=== PATIENT | male | born 1960 | race Caucasian/White ===

== ENCOUNTER → 2018-03-02 00:05 | Outpatient (CLI) | payer BC, SELFPAY ==
--- NOTE | 2018-03-02 08:45 | MERGEMPI_ITS ---
*[facility]* *[facility]* [address] [place] [address] Myocardial Perfusion Imaging - SPECT Abhinav protocol Date of study: 03/02/2018 *PATIENT PRESENTATION* Height: 177.8cm (70in) Blood Pressure: Weight: 113.6kg (250lb) BSA: 2.41m^2 Ordering physician: Rosalba Ferguson Impressions: - Normal perfusion by Tc99m Sestamibi Imaging. - Abnormal contraction consistent with cardiomyopathy. Summary: 1. Myocardial perfusion imaging: No myocardial perfusion defects noted. 2. The left ventricular end-systolic volume is 75ml. The calculated left ventricular ejection fraction after stress: 47%. LV global systolic function is mildly reduced. Diffuse left ventricular regional motion abnormalities. 3. Stress ECG conclusions: The stress ECG is negative. Zarate treadmill score: 10. This score predicts a low risk of cardiac events. 4. Stress: The target heart rate was achieved. The heart rate response to stress is normal. There is resting hypertension with an appropriate response to stress. The patient experienced no chest pain during stress. Exercise capacity is good (11 METS). Recommendations: Transthoracic echocardiography should be performed in order to evaluate LV function. Indication: R07.9. History: Patient's presenting symptoms: asymptomatic. REASON FOR VISIT: PATIENT PRESENTED TO EMERGENCY ROOM 02/20/18 WITH COMPLAINTS OF FEELING LIGHTHEADED FOR GREATER THAN ONE DAY, SHORTNESS OF BREATH AND 3/10 NONRADIATING CHEST ACHING (FEELS LIKE THERE IS A WEIGHT ON MY CHEST) THAT HAD BEEN EXPERIENCED FOR THE PAST HOUR. ON PRESENTATION TO EMERGENCY ROOM CHEST ACHING HAD RESOLVED. IN EMERGENCY ROOM, EKG DISPLAYED SINUS RHYTHM AND UNCHANGED, TROPONINS NEGATIVE X 2, AND NEGATIVE FOR PULMONARY EMBOLISM ON CTA. HOLTER MONITOR INFORMATION FROM 01/05/18 PROVIDED. BASELINE RHYTHM WAS SINUS RHYTHM, RATES RANGING FROM 53-125 BEATS PER MINUTE, RARE ECTOPY, AND NO PAUSES GREATER THAN 3 SECONDS. PAST MEDICAL HISTORY: ANXIETY, HYPERTENSION. FAMILY HISTORY: FATHER, MOTHER (VENTRICULAR TACHYCARDIA). SMOKING STATUS: NEVER SMOKER. EXERCISE ROUTINE: 2X/WEEK OF RESISTANCE AND AEROBIC WORKOUT. Risk factors: Family history of coronary artery disease. Hypertension. Obesity. Dyslipidemia. Cholesterol: 137mg/dl. HDL: 41mg/dl. LDL: 68mg/dl. Triglycerides: 137mg/dl. ALLERGIES: NO KNOWN ALLERGIES. MEDICATIONS: DEXTROAMPHETAMINE/AMPHETAMINE 10MG, DAILY. HYDROCHLOROTHIAZIDE 25MG, DAILY. PROPRANOLOL HCL 60MG, DAILY. VENLAFAXINE 75MG, DAILY. Imaging Technique: Protocol: Abhinav protocol. Acquisition: Gated SPECT; 1 day - rest/stress. The patient was imaged in the supine position. Attenuation correction used. Isotope administration: - Rest. Tc[99m]-sestamibi. Dose: 12.6mCi. Injection time: 09:15 AM. Injection to stress time: 00:45. - Stress. Tc[99m]-sestamibi. Dose: 38mCi. Injection time: 10:35 AM. 1-2 min before end of exercise Baseline ECG: SINUS BRADYCARDIA. HEART RATE 56 BPM. Sinus bradycardia. Stress protocol: + +---+ + !Stage !HR !BP (mmHg) ! + +---+ + !Baseline supine !56 !146/88 (107)! + +---+ + !Baseline standing !66 !148/90 (109)! + +---+ + !Stage I; 1.7mph, 10degrees; 3 min !96 !158/86 (110)! + +---+ + !Stage II; 2.5mph, 12degrees; 3 min !111!170/82 (111)! + +---+ + !Stage III; 3.4mph, 14degrees; 3 min!146!178/80 (113)! + +---+ + !Recovery; 1 min !138!190/78 (115)! + +---+ + !Recovery; 3 min !82 !182/84 (117)! + +---+ + !Recovery; 6 min !82 !158/84 (109)! + +---+ + * Stress results: Maximal heart rate during stress was 160bpm (98% of maximal predicted heart rate). The maximal predicted heart rate was 163bpm. The target heart rate was achieved. The heart rate response to stress is normal. There is resting hypertension with an appropriate response to stress. The rate-pressure product for the peak heart rate and blood pressure was 73630fg Hg/min. The patient experienced no chest pain during stress. Exercise capacity is good (11 METS). Stress ECG: TREADMILL PORTION OF EXERCISE STRESS TEST ENDED IN 10MIN 0SEC DUE TO PATIENT FATIGUE. APPROPRIATE HEART RATE AND BLOOD PRESSURE RESPONSE TO EXERCISE. MAX HEART RATE ACHIEVED 160 BPM, 98% OF TARGET. NO ANGINA REPORTED. RARE PAC OBSERVED. UPWARD SLOPING ST DEPRESSION NOTED IN LEADS V3, V4, V5, AND V6. AVERAGE FUNCTIONAL CAPCITY FOR EXERCISE. The stress ECG is negative. Zarate treadmill score: 10. This score predicts a low risk of cardiac events. Myocardial perfusion: Imaging information: gated. The image quality was good. The left ventricle is mildly dilated. No myocardial perfusion defects noted. Ventricular Function (Wall Motion): The left ventricular end-systolic volume is 75ml. The calculated left ventricular ejection fraction after stress: 47%. LV global systolic function is mildly reduced. Diffuse left ventricular regional motion abnormalities. Right ventricular function is normal. Study data: Almas Rizzo MD supervised and was readily available during the procedure. This study was interpreted by [facility]. Study status: Routine. Consent: The risks, benefits, and alternatives to the procedure were explained to the patient and informed consent was obtained. Procedure: Initial setup. A baseline ECG was recorded. Surface ECG leads and manual cuff blood pressure measurements were monitored. Heart sounds: Normal. Lung sounds: Normal. Treadmill exercise testing was performed using the Abhinav protocol. Study completion: All catheters inserted during the procedure were removed. The patient tolerated the procedure well and was discharged from the lab. Discharge: The patient left the laboratory in stable condition. Birthdate: Patient birthdate: 1960. Sex: Gender: male. Study date: Study date: 03/02/2018. Study time: 12:30 PM. Signature Documentation: - The imaging portion of this study was interpreted by Nuclear Senior Merchandiser Almas Rizzo MD. - The imaging portion of this study was interpreted by Nuclear Radiologist Josh Slade MD. - The Stress ECG portion of this study was interpreted by Almas Rizzo MD. Electronically signed by Almas Rizzo 03/02/2018 12:51
== END ==
PROVIDERS: PCP Family Medicine; Visit Provider Family Medicine
DX: R07.9 Chest pain, unspecified (principal); R06.02 Shortness of breath; I42.9 Cardiomyopathy, unspecified; I10 Essential (primary) hypertension; F41.9 Anxiety disorder, unspecified; Z82.49 Family history of ischemic heart disease and other diseases of the circulatory system
CPT/HCPCS: 78452; 93017

== ENCOUNTER → 2018-03-09 13:51 | Outpatient (CLI) | payer BC, SELFPAY ==
--- NOTE | 2018-03-09 14:05 | MERGE_ITS ---
*[facility]* *[facility]* [address] [place] [address] Date of study: 03/09/2018 Transthoracic Echocardiography M-mode, complete 2D, complete spectral Doppler, and color Doppler *STUDY CONCLUSIONS* Summary: 1. Left ventricle: The cavity size was mildly dilated. Wall thickness was increased in a pattern of mild LVH. Systolic function was normal. The estimated ejection fraction was 55-60%. Wall motion was normal; there were no regional wall motion abnormalities. 2. Aortic valve: Trileaflet; normal thickness leaflets. There was mild regurgitation. 3. Aortic root: The aortic root was mildly dilated. 4.0 cm. 4. Mitral valve: There was mild regurgitation. 5. Left atrium: The atrium was mildly dilated. 6. Right ventricle: The cavity size was mildly dilated. Wall thickness was normal. Systolic function was normal. 7. Right atrium: The atrium was moderately dilated. 8. Pulmonary arteries: Pulmonary systolic pressure was within the normal range, in the range of 30mm Hg to 35mm Hg. *PATIENT PRESENTATION* Height: 177.8cm ((70in) ) S/D Pressure: 138 / 77 Weight: 113.4kg ((249.5lb) ) BSA: 2.41m^2 Test start time: 02:15 PM. Test stop time: 03:00 PM. ORDERING Rosalba Ferguson REFERRING Rosalba Ferguson PERFORMING Unknown PERFORMING [facility] SENIOR COMMISSIONS ANALYST RT Art Winston)(ALONZO)MINDA *PROCEDURE DATA* Procedure information: The patient was identified by two identifiers. This study was interpreted by [facility]. Pertinent images and digital data are archived for permanent storage and are available for subsequent review. Comparison was made to the study of 11/16/2013. Study status: Routine. Transthoracic echocardiography. M-mode, complete 2D, complete spectral Doppler, and color Doppler. A Transthoracic Echocardiogram was performed. Scanning was performed from the parasternal, apical, subcostal, and suprasternal notch acoustic windows. Images were obtained using an [id number] cardiac ultrasound machine. Image quality was adequate. Study completion: The patient tolerated the procedure well. There were no complications. History: PMH: Low Ejection fraction. Recent ER visit for chest pain, dizziness, increased HE, MPI negative for ischemia, echo reccomended. *CARDIAC ANATOMY* Left ventricle: The cavity size was mildly dilated. Wall thickness was increased in a pattern of mild LVH. Systolic function was normal. The estimated ejection fraction was 55-60%. Wall motion was normal; there were no regional wall motion abnormalities. Findings consistent with diastolic dysfunction. Aortic valve: Trileaflet; normal thickness leaflets. Mobility was not restricted. Doppler: Transvalvular velocity was within the normal range. There was no stenosis. There was mild regurgitation. VTI ratio of LVOT to aortic valve: 0.62. Valve area (VTI): 2.4cm^2. Indexed valve area (VTI): 1cm^2/m^2. Peak velocity ratio of LVOT to aortic valve: 0.67. Valve area (Vmax): 2.6cm^2. Indexed valve area (Vmax): 1.1cm^2/m^2. Mean velocity ratio of LVOT to aortic valve: 0.54. Valve area (Vmean): 2.1cm^2. Indexed valve area (Vmean): 0.9cm^2/m^2. Mean gradient (S): 6.6mm Hg. Peak gradient (S): 11.7mm Hg. Aorta: Aortic root: The aortic root was mildly dilated. 4.0 cm. Ascending aorta: The ascending aorta was normal in size. Mitral valve: Structurally normal valve. Mobility was not restricted. Doppler: Transvalvular velocity was within the normal range. There was no evidence for stenosis. There was mild regurgitation. Valve area by pressure half-time: 3.7cm^2. Indexed valve area by pressure half-time: 1.5cm^2/m^2. Left atrium: The atrium was mildly dilated. Right ventricle: The cavity size was mildly dilated. Wall thickness was normal. Systolic function was normal. Pulmonic valve: Structurally normal valve. Doppler: Transvalvular velocity was within the normal range. There was no evidence for stenosis. There was trivial regurgitation. Tricuspid valve: Structurally normal valve. Doppler: Transvalvular velocity was within the normal range. There was no evidence for stenosis. There was mild regurgitation. Pulmonary artery: Pulmonary systolic pressure was within the normal range, in the range of 30mm Hg to 35mm Hg. Right atrium: The atrium was moderately dilated. Pericardium: There was no pericardial effusion. Systemic veins: Inferior vena cava: Not well visualized. The vessel was patent and normal in size. The respirophasic diameter changes were in the normal range (greater than or equal to 50%). Baseline ECG: Normal sinus rhythm. Measurements Left ventricle Value Reference LV ID, ED, PLAX 6.0 cm 3.5 - 6.0 LV ID, ES, PLAX (H) 4.4 cm 2.1 - 4.0 LV PW thickness, ED, PLAX 1.1 cm LV end-diastolic volume, 1-p A2C 117 ml LV ejection fraction, 1-p A2C 50 % LV end-diastolic volume, 1-p A4C 147 ml LV ejection fraction, 1-p A4C 55 % LV e', lateral 0.066 m/sec LV E/e', lateral 8 LV e', medial 0.06 m/sec LV E/e', medial 9 LV e', average 0.063 m/sec LV E/e', average 9 Ventricular septum Value Reference IVS thickness, ED, PLAX 1.2 cm LVOT Value Reference LVOT ID, A-P 2.2 cm LVOT area 3.9 cm^2 LVOT peak velocity, S 1.14 m/sec LVOT mean velocity, S 0.67 m/sec LVOT VTI, S 24.6 cm LVOT peak gradient, S 5.2 mm Hg LVOT mean gradient, S 2.3 mm Hg Stroke volume (SV), LVOT DP 97 ml Stroke index (SV/bsa), LVOT DP 40 ml/m^2 Aortic valve Value Reference Aortic valve peak velocity, S 1.7 m/sec Aortic valve mean velocity, S 1.24 m/sec Aortic valve VTI, S 40.0 cm Aortic mean gradient, S 6.6 mm Hg Aortic peak gradient, S 11.7 mm Hg VTI ratio, LVOT/AV 0.62 Aortic valve area, VTI 2.4 cm^2 Velocity ratio, peak, LVOT/AV 0.67 Aortic valve area, peak velocity 2.6 cm^2 Velocity ratio, mean, LVOT/AV 0.54 Aortic valve area, mean velocity 2.1 cm^2 Aortic valve area/bsa, mean velocity 0.9 cm^2/m^2 Aortic regurg deceleration 260 cm/s^2 Aortic regurg pressure half-time 445 ms Aorta Value Reference Aortic root ID, ED 4.0 cm Ascending aorta ID, A-P, S 3.3 cm RVOT Value Reference RVOT VTI, S 16.9 cm Left atrium Value Reference LA ID, A-P, ES 4.6 cm LA ID/bsa, A-P 1.9 cm/m^2 <=2.2 LA area, ES, A4C (H) 28.5 cm^2 8.8 - 23.4 LA area, ES, A2C 23 cm^2 LA volume/bsa, ES, 1-p A4C 48 ml/m^2 LA volume, ES, 2-p 87 ml LA volume/bsa, ES, 2-p 36 ml/m^2 LA/aortic root ratio 1.16 Mitral valve Value Reference Mitral E-wave peak velocity 0.54 m/sec Mitral A-wave peak velocity 0.8 m/sec Mitral deceleration time 208 ms 150 - 230 Mitral pressure half-time 60 ms Mitral E/A ratio, peak 0.68 Mitral valve area, PHT, DP 3.7 cm^2 Pulmonary veins Value Reference Pulmonary vein peak velocity, S 0.66 m/sec Pulmonary vein peak velocity, D 0.39 m/sec Pulmonary vein velocity ratio, peak, 1.71 S/D Pulmonary vein A-wave reversal peak 0.34 m/sec velocity Pulmonary vein A-wave reversal 133 ms duration Tricuspid valve Value Reference Tricuspid regurg peak velocity 2.6 m/sec Tricuspid peak RV-RA gradient 26.9 mm Hg Right atrium Value Reference RA area, ES, A4C (H) 22.5 cm^2 8.3 - 19.5 Legend: (L) and (H) braeden values outside specified reference range. I have personally reviewed the images and have reviewed and edited the reported findings. Electronically signed by Almas Rizzo 03/09/2018 15:48
== END ==
PROVIDERS: PCP Family Medicine; Visit Provider Family Medicine
DX: R07.9 Chest pain, unspecified (principal); R06.09 Other forms of dyspnea; R42 Dizziness and giddiness; I08.0 Rheumatic disorders of both mitral and aortic valves
CPT/HCPCS: 93306

== ENCOUNTER → 2018-03-29 08:44 | Outpatient (CLI) | payer BC, SELFPAY ==
[2018-03-29 10:22] LABS: Ferritin 128 ng/mL (8-388); TSH 1.07 uIU/mL (0.358-3.74)
== END ==
PROVIDERS: PCP Family Medicine; Visit Provider Nurse Practitioner
DX: G47.61 Periodic limb movement disorder (principal); R53.83 Other fatigue
CPT/HCPCS: 36415; 82728; 84443

== ENCOUNTER 2018-07-29 14:13 | Outpatient (REF) | payer BC, SELFPAY ==
[2018-07-29 15:03] LABS: Anion Gap 12.5 mmol/L (3-11); BUN 22 mg/dL (7-18); CO2 24.5 mmol/L (21.0-32.0); CREATININE 1.22 mg/dL (0.70-1.30); Calcium 9.6 mg/dL (8.5-10.1); Chloride 105 mmol/L (98-107); Glucose 124 mg/dL (70-100); Potassium 3.8 mmol/L (3.5-5.1); Sodium 142 mmol/L (136-145)
== END 2018-07-29 14:33 ==
LOC: NCHCN 14:13
PROVIDERS: PCP Family Medicine; Visit Provider Family Medicine
DX: E87.6 Hypokalemia (principal); Z51.81 Encounter for therapeutic drug level monitoring
CPT/HCPCS: 80048

== ENCOUNTER 2018-08-05 08:33 | Day surgery (SDC) | payer BC, SELFPAY ==
[2018-08-05 08:57] VITALS: BP 124/78; PULSE 62; RESP 16; TEMP 35.8; O2SAT 98
[2018-08-05] MEDS: Lidocaine 2% Multi-Dose 50 ML VIAL (10:29)
--- NOTE | 2018-08-05 10:44 | W.PM.DSUDISC ---
Discharge Plan Disposition Patient Disposition: HOME Condition: Improving Discharge Details Reason For Visit: (R) CARPAL TUNNEL Attending Provider: Mando Ayers Primary Care Provider: Rosalba Ferguson Home Meds and New Rx's Prescriptions: No Action lisinopril 10 mg tablet 10 mg PO DAILY RF: 0 prochlorperazine maleate 5 mg tablet 5 mg PO Q8H PRN PRN (Reason: nausea or headache) Qty: 60 RF: 3 ropinirole 1 mg tablet 1 mg PO HS Qty: 30 RF: 0 topiramate 25 mg tablet 25 mg PO HS Qty: 60 RF: 5 propranolol 20 MG/5 ML solution 60 mg PO BID RF: 0 sertraline 50 MG tablet 150 mg PO DAILY RF: 0 Aspirin/Acetaminophen/Caffeine [Excedrin Migraine Caplet] 1 EACH tablet 1 ea PO DAILY RF: 0 multivitamin [Daily Multiple] 1 EACH tablet 1 ea PO DAILY RF: 0 dextroamphetamine-amphetamine [Adderall XR] 20 MG capsule,extended release 24hr 20 mg PO DAILY RF: 0 vitamin B complex [B Complex-Vitamin B12] 1 EACH tablet 1 ea PO DAILY RF: 0 vitamin E 400 UNIT capsule 400 unit PO DAILY RF: 0 cholestyramine (with sugar) 4 GM packet 4 g PO BID RF: 0 cholecalciferol (vitamin D3) 1,000 UNIT tablet 1,000 unit PO DAILY RF: 0 omega 7-csr-crr-fish oil [Fish Oil] 1,000 MG capsule 2,000 mg PO BID RF: 0 Probiotic 1 EACH capsule 1 ea PO DAILY RF: 0 venlafaxine 75 MG tablet 75 mg PO DAILY RF: 0 ibuprofen 200 mg Capsule 200 mg PO QID PRNRF: 0 pseudoephedrine HCl [Sudafed] 30 mg Tablet RF: 0 Discharge Instructions Additional Instructions: Keep your right hand elevated above your heart level as much as possible for the next 48-72 hours. Exercise your fingers and thumb as comfort allows. You may loosen your wrist splint and/or the underlying lopez bandage if they feel too tight. Expect some bloody drainage on the underlying gauze bandages. You may shower tomorrow, by covering your brace with a plastic bag and a rubber band about the upper forearm to keep the bandages dry. On 08/07/18, you may remove all of your bandages and get your wound wet in the shower with soap and water. Gently pat the stitches dry and cover them with gauze, or extra-large bandaids or a clean fingerless cotton glove to prevent the stitches from catching on your clothing or other objects. After wednesday, use of the brace is optional. You may go without it as comfort allows. Make sure you continue to flex and extend your fingers and thumb to prevent stiffness. Take your regular medications as before. Take tylenol, advil or aleve for milder pain. Tylenol may be taken at the same time as advil or at the same time as aleve as they are metabolized differently and are not cross toxic. Follow-up with in 1 week for stitch removal. Stand Alone Forms: Natasha Amado (DSU) Equipment/Supplies: Brace Activity:: Elevate Remove Dressings/Wound Care:: 48 hours Shower/Bathe:: 48 hours Diet:: As Tolerated Discharge Orders Discharge Orders: Discharge Order (Routine); Ordered 08/05/18 Ordered By: Mando Aeyrs
--- NOTE | 2018-08-05 11:23 | ROE_ITS ---
DATE OF PROCEDURE: August 05, 2018 PREOPERATIVE DIAGNOSIS: Chronic bilateral carpal tunnel syndrome, right worse than left. POSTOPERATIVE DIAGNOSIS: Same. PROCEDURE: Right open carpal tunnel release. SURGEON: Mando Ayers M.D. BRUSHER TENDER: Nurse. ANESTHETIC: 2% lidocaine plain without epinephrine. PREP: ChloraPrep. INDICATIONS: This patient has had chronic symptoms of bilateral carpal tunnel syndrome, right worse than left. He had EMG and nerve conduction studies which showed the above-named diagnosis. He also had numbness involving the little finger, but no evidence of cubital tunnel syndrome or ulnar neuropa thy elsewhere. I recommended open carpal tunnel release, explaining to the patient that this often w ould create more space for the ulnar nerve at Guyon's canal and also that about 15% of patients with chronic carpal tunnel syndrome have involvement of the little finger. He had no thenar atrophy. His left hand was less involved. I explained to the patient the difference between endoscopic carpal tu nnel release and open carpal tunnel release. I also explained my preference for an open release, as I felt it was more complete and also had a lower complication rate. He understood and wished to proc eed. I saw the patient and his in the Day Surgery holding area. I marked his right hand. I reviewed the planned procedure. He consented to proceed. PROCEDURE: The patient was brought to the operating suite where his right upper extremity was preppe d with ChloraPrep. A time-out was instituted, verifying his allergy status and his planned operative procedure. Sterile drapes were applied and the right hand was marked with a sterile surgical marker for the universal carpal tunnel incision based over the ring finger. Care was taken to deviate the incision over the distal flexion crease of the wrist so as to prevent injury to the palmar cutaneous branch of the median nerve. 2% lidocaine was then used to create an anesthetic wheal over the propos ed incision site. After waiting several minutes and verifying complete anesthesia over the incision site, the incision was made with a #15 scalpel blade. Loupe magnification was used throughout the pr ocedure. The incision was carried down through the superficial palmar fat to the palmar fascia. Thi s was incised with a combination of sharp and blunt dissection. Heiss retractors were inserted. The transverse carpal ligament was easily identified. Under direct vision it was released with a #15 sc alpel blade. The release was complete, extending to just proximal to the distal arterial arcade and through the antebrachial fascia. This was done proximally using Littler scissors. I then had the pa tient flex and extend his fingers. He had moderate tenosynovitis. He had the characteristic flatten ing of the median nerve in the mid portion of the carpal tunnel. I found no evidence of any loose kathleen dies, foreign bodies or ganglion cyst. The wound was then irrigated and the skin was closed with sut ures alternating between [id number] retention sutures and simple sutures of #4-0 Ethilon. Celestino rile bandages were applied. The patient was allowed to visualize his hand and could make a completel y tightly-clenched fist and had full extension. The wound was dressed with 4x4's and 3-inch conformi ng gauze bandage, followed by a 3-inch Joey wrap and a commercial wrist immobilizer. He was taken to the outpatient recovery room in satisfactory condition, tolerating the procedure well.
--- NOTE | 2018-08-10 09:16 | PDOC.DSDIS_ITS ---
Discharge Plan Disposition Patient Disposition: HOME Condition: Improving Discharge Details Reason For Visit: (R) CARPAL TUNNEL Attending Provider: Mando Ayers Primary Care Provider: Rosalba Ferguson Home Meds and New Rx's Prescriptions: No Action lisinopril 10 mg tablet 10 mg PO DAILY RF: 0 prochlorperazine maleate 5 mg tablet 5 mg PO Q8H PRN PRN (Reason: nausea or headache) Qty: 60 RF: 3 ropinirole 1 mg tablet 1 mg PO HS Qty: 30 RF: 0 topiramate 25 mg tablet 25 mg PO HS Qty: 60 RF: 5 propranolol 20 MG/5 ML solution 60 mg PO BID RF: 0 sertraline 50 MG tablet 150 mg PO DAILY RF: 0 Aspirin/Acetaminophen/Caffeine [Excedrin Migraine Caplet] 1 EACH tablet 1 ea PO DAILY RF: 0 multivitamin [Daily Multiple] 1 EACH tablet 1 ea PO DAILY RF: 0 dextroamphetamine-amphetamine [Adderall XR] 20 MG capsule,extended release 24hr 20 mg PO DAILY RF: 0 vitamin B complex [B Complex-Vitamin B12] 1 EACH tablet 1 ea PO DAILY RF: 0 vitamin E 400 UNIT capsule 400 unit PO DAILY RF: 0 cholestyramine (with sugar) 4 GM packet 4 g PO BID RF: 0 cholecalciferol (vitamin D3) 1,000 UNIT tablet 1,000 unit PO DAILY RF: 0 omega 9-vzx-cja-fish oil [Fish Oil] 1,000 MG capsule 2,000 mg PO BID RF: 0 Probiotic 1 EACH capsule 1 ea PO DAILY RF: 0 venlafaxine 75 MG tablet 75 mg PO DAILY RF: 0 ibuprofen 200 mg Capsule 200 mg PO QID PRNRF: 0 pseudoephedrine HCl [Sudafed] 30 mg Tablet RF: 0 hydrocodone-acetaminophen [[place]] 5-325 mg Tablet 1 - 2 tab PO Q4H PRNRF: 0 Discharge Instructions Additional Instructions: Keep your right hand elevated above your heart level as much as possible for the next 48-72 hours. Exercise your fingers and thumb as comfort allows. You may loosen your wrist splint and/or the underlying lopez bandage if they feel too tight. Expect some bloody drainage on the underlying gauze bandages. You may shower tomorrow, by covering your brace with a plastic bag and a rubber band about the upper forearm to keep the bandages dry. On 08/07/18, you may remove all of your bandages and get your wound wet in the shower with soap and water. Gently pat the stitches dry and cover them with gauze, or extra-large bandaids or a clean fingerless cotton glove to prevent the stitches from catching on your clothing or other objects. After wednesday, use of the brace is optional. You may go without it as comfort allows. Make sure you continue to flex and extend your fingers and thumb to prevent stiffness. Take your regular medications as before. Take tylenol, advil or aleve for milder pain. Tylenol may be taken at the same time as advil or at the same time as aleve as they are metabolized differently and are not cross toxic. Follow-up with in 1 week for stitch removal. Stand Alone Forms: Natasha Amado (DSU) Equipment/Supplies: Brace Activity:: Elevate Remove Dressings/Wound Care:: 48 hours Shower/Bathe:: 48 hours Diet:: As Tolerated Discharge Orders Discharge Orders: Discharge Order (Routine); Ordered 08/05/18 Ordered By: Mando Ayers Discharge Data Discharge Date/Time-TO BE ENTERED AT DEPARTURE: 08/05/18 11:06 Discharge Comment: Pt d/c'd with spouse in personal vehicle.
== END 2018-08-05 11:06 | disposition home or self-care (01) ==
PROVIDERS: PCP Family Medicine; Visit Provider Orthopaedic Surgery
PROC: (CPT 64721; principal; 2018-08-05 09:30)
DX: G56.03 Carpal tunnel syndrome, bilateral upper limbs (principal)
CPT/HCPCS: 64721; L3908

== ENCOUNTER 2018-08-13 21:43 | Emergency (ER) | payer BC, SELFPAY ==
[2018-08-13 21:48] VITALS: BP 155/91; PULSE 72; RESP 16; TEMP 36.2; O2SAT 96
--- NOTE | 2018-08-13 21:53 | W.ED.GENAD ---
Discharge Plan Disposition Patient Disposition: HOME Condition: Good Discharge Details Chief Complaint: Orthopedic Clinical Impression: Postoperative wound breakdown Primary Care Provider: Rosalba Ferguson ED Provider: Josh Key Home Meds and New Rx's Prescriptions: Continued lisinopril 10 mg tablet 10 mg PO DAILY RF: 0 prochlorperazine maleate 5 mg tablet 5 mg PO Q8H PRN PRN (Reason: nausea or headache) Qty: 60 RF: 3 ropinirole 1 mg tablet 1 mg PO HS Qty: 30 RF: 0 topiramate 25 mg tablet 25 mg PO HS Qty: 60 RF: 5 propranolol 20 MG/5 ML solution 60 mg PO BID RF: 0 sertraline 50 MG tablet 150 mg PO DAILY RF: 0 Aspirin/Acetaminophen/Caffeine [Excedrin Migraine Caplet] 1 EACH tablet 1 ea PO DAILY RF: 0 multivitamin [Daily Multiple] 1 EACH tablet 1 ea PO DAILY RF: 0 dextroamphetamine-amphetamine [Adderall XR] 20 MG capsule,extended release 24hr 20 mg PO DAILY RF: 0 vitamin B complex [B Complex-Vitamin B12] 1 EACH tablet 1 ea PO DAILY RF: 0 vitamin E 400 UNIT capsule 400 unit PO DAILY RF: 0 cholestyramine (with sugar) 4 GM packet 4 g PO BID RF: 0 cholecalciferol (vitamin D3) 1,000 UNIT tablet 1,000 unit PO DAILY RF: 0 omega 1-coz-jqd-fish oil [Fish Oil] 1,000 MG capsule 2,000 mg PO BID RF: 0 Probiotic 1 EACH capsule 1 ea PO DAILY RF: 0 venlafaxine 75 MG tablet 75 mg PO DAILY RF: 0 ibuprofen 200 mg Capsule 200 mg PO QID PRNRF: 0 pseudoephedrine HCl [Sudafed] 30 mg Tablet RF: 0 hydrocodone-acetaminophen [[place]] 5-325 mg Tablet 1 - 2 tab PO Q4H PRNRF: 0 Discharge Instructions Additional Instructions: Leave the Xeroform dressing in place. May change the gauze dressing as needed. Continue to wear your splint. Contact Dr. Ayers on Wednesday for follow-up. Return to ED for fever, increasing pain, increasing drainage, redness. Referrals: Mando Ayers MD [ [facility] STAFF PHYSICIAN] - Medical Decision Making Patient's incision has opened but does not appear to be infected. The dermis has opened but the tissue beneath is intact. There is no drainage. There is no erythema. I did speak with Dr. Rockwell on-call for orthopedics. Does not appear to be an obvious infection. Would not put on antibiotics prophylactically. Recommend Xeroform dressing and following up with Dr. Ayers. Discussed this with patient and . Discharged home in good condition. HPI General Mode of arrival: ambulatory. Date/Time Provider Initiated Documentation: 08/13/18 21:48. Limitations to Documentation: no limitations. Information obtained by: patient and family. HPI Narrative: Patient presents for evaluation of his wound which opened up. He had a right carpal tunnel surgery done on the fourth. Sutures were removed yesterday. Wound opened a little bit and Steri-Strips were applied. Today wound opened up completely. He had some bleeding. He has had no fever. He has had no redness or drainage since the bleeding. Area is a little more painful than it had been since the sutures were removed yesterday. Related Data Home Medications Medication Instructions Recorded Confirmed propranolol 60 mg PO BID ml 11/18/12 08/13/18 sertraline 150 mg PO DAILY tab-cap 11/18/12 08/13/18 venlafaxine 75 mg PO DAILY 04/25/16 08/13/18 Aspirin/Acetaminophen/Caffeine 1 ea PO DAILY 03/21/18 08/13/18 [Excedrin Migraine Caplet] Probiotic 1 ea PO DAILY 03/21/18 08/13/18 cholecalciferol (vitamin D3) 1,000 unit PO DAILY 03/21/18 08/13/18 cholestyramine (with sugar) 4 g PO BID packet 03/21/18 08/13/18 dextroamphetamine-amphetamine 20 mg PO DAILY tab-cap 03/21/18 08/13/18 [Adderall XR] multivitamin [Daily Multiple] 1 ea PO DAILY 03/21/18 08/13/18 omega 2-nao-doa-fish oil [Fish Oil] 2,000 mg PO BID 03/21/18 08/13/18 vitamin B complex [B 1 ea PO DAILY 03/21/18 08/13/18 Complex-Vitamin B12] vitamin E 400 unit PO DAILY 03/21/18 08/13/18 lisinopril 10 mg tablet 10 mg PO DAILY 10/01/18 01/12/19 prochlorperazine maleate 5 mg 5 mg PO Q8H PRN PRN #60 tab 05/02/18 08/13/18 tablet ropinirole 1 mg tablet 1 mg PO HS #30 tab 05/02/18 08/13/18 topiramate 25 mg tablet 25 mg PO HS #60 tab 07/04/18 08/13/18 hydrocodone-acetaminophen [[place]] 1 - 2 tab PO Q4H PRN 08/05/18 08/13/18 ibuprofen 200 mg PO QID PRN 08/05/18 08/13/18 pseudoephedrine HCl [Sudafed] 08/05/18 08/12/18 Previous Rx's Medication Instructions Recorded prochlorperazine maleate 5 mg 5 mg PO Q8H PRN PRN #60 tab 05/02/18 tablet ropinirole 1 mg tablet 1 mg PO HS #30 tab 05/02/18 topiramate 25 mg tablet 25 mg PO HS #60 tab 07/04/18 Allergies Allergy/AdvReac Type Severity Reaction Status Date / Time No Known Allergies Allergy Unverified 08/13/18 21:56 Review of Systems Constitutional Denies fever(s) and Denies weakness Musculoskeletal Denies numbness and Denies tingling Integumentary/Breasts Denies erythema and Reports wounds Neurologic Denies focal weakness, Denies numbness, Denies sensory deficit, Denies tingling, Denies paresthesias and Denies weakness [facility] Medical History Erectile dysfunction (Chronic) Colon cancer (Resolved) ADHD (Chronic) Depression with anxiety (Chronic) BMI 37.0-37.9, adult (Chronic) Pre-diabetes (Chronic) Gout (Chronic) Obstructive sleep apnea on CPAP (Chronic) Headache, chronic migraine without aura (Chronic) Hyperlipidemia (Chronic) Hypertension (Chronic) Hemorrhoids (Chronic) Dilated cardiomyopathy (Acute) Headache (Resolved) History of hypertension (Resolved) Surgical History H/O umbilical hernia repair (Acute) Leg fracture (Acute) S/P partial colectomy (Acute) Repair of umbilical hernia (Resolved) Social History household members: spouse and children current occupation: [employer], 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 Exam Const General: cooperative, comfortable and no acute distress Orientation: alert and oriented x3 Skin Other: Incision in the right hand/wrist area has opened up along the entire incision. Granulation tissue below the dermis is intact. It looks pink and viable. There is no drainage. There is no foul smell. There is no erythema.
--- NOTE | 2018-08-13 22:13 | ED.GENADUL_ITS ---
Discharge Plan Disposition Patient Disposition: HOME Condition: Good Discharge Details Chief Complaint: Orthopedic Clinical Impression: Postoperative wound breakdown Primary Care Provider: Rosalba Ferguson ED Provider: Josh Key Home Meds and New Rx's Prescriptions: Continued lisinopril 10 mg tablet 10 mg PO DAILY RF: 0 prochlorperazine maleate 5 mg tablet 5 mg PO Q8H PRN PRN (Reason: nausea or headache) Qty: 60 RF: 3 ropinirole 1 mg tablet 1 mg PO HS Qty: 30 RF: 0 topiramate 25 mg tablet 25 mg PO HS Qty: 60 RF: 5 propranolol 20 MG/5 ML solution 60 mg PO BID RF: 0 sertraline 50 MG tablet 150 mg PO DAILY RF: 0 Aspirin/Acetaminophen/Caffeine [Excedrin Migraine Caplet] 1 EACH tablet 1 ea PO DAILY RF: 0 multivitamin [Daily Multiple] 1 EACH tablet 1 ea PO DAILY RF: 0 dextroamphetamine-amphetamine [Adderall XR] 20 MG capsule,extended release 24hr 20 mg PO DAILY RF: 0 vitamin B complex [B Complex-Vitamin B12] 1 EACH tablet 1 ea PO DAILY RF: 0 vitamin E 400 UNIT capsule 400 unit PO DAILY RF: 0 cholestyramine (with sugar) 4 GM packet 4 g PO BID RF: 0 cholecalciferol (vitamin D3) 1,000 UNIT tablet 1,000 unit PO DAILY RF: 0 omega 7-gkd-bnh-fish oil [Fish Oil] 1,000 MG capsule 2,000 mg PO BID RF: 0 Probiotic 1 EACH capsule 1 ea PO DAILY RF: 0 venlafaxine 75 MG tablet 75 mg PO DAILY RF: 0 ibuprofen 200 mg Capsule 200 mg PO QID PRNRF: 0 pseudoephedrine HCl [Sudafed] 30 mg Tablet RF: 0 hydrocodone-acetaminophen [[place]] 5-325 mg Tablet 1 - 2 tab PO Q4H PRNRF: 0 Discharge Instructions Additional Instructions: Leave the Xeroform dressing in place. May change the gauze dressing as needed. Continue to wear your splint. Contact Dr. Ayers on Wednesday for follow-up. Return to ED for fever, increasing pain, increasing drainage, redness. Referrals: Mando Ayers MD [ [facility] STAFF PHYSICIAN] - Medical Decision Making Patient's incision has opened but does not appear to be infected. The dermis has opened but the tissue beneath is intact. There is no drainage. There is no erythema. I did speak with Dr. Rockwell on-call for orthopedics. Does not appear to be an obvious infection. Would not put on antibiotics prophylactically. Recommend Xeroform dressing and following up with Dr. Ayers. Discussed this with patient and . Discharged home in good condition. HPI General Mode of arrival: ambulatory . Date/Time Provider Initiated Documentation: 08/13/18 21:48 . Limitations to Documentation: no limitations . Information obtained by: patient and family . HPI Narrative: Patient presents for evaluation of his wound which opened up. He had a right carpal tunnel surgery done on the fourth. Sutures were removed yesterday. Wound opened a little bit and Steri-Strips were applied. Today wound opened up completely. He had some bleeding. He has had no fever. He has had no redness or drainage since the bleeding. Area is a little more painful than it had been since the sutures were removed yesterday. Related Data Home Medications Medication Instructions Recorded Confirmed propranolol 60 mg PO BID ml 11/18/12 08/13/18 sertraline 150 mg PO DAILY tab-cap 11/18/12 08/13/18 venlafaxine 75 mg PO DAILY 04/25/16 08/13/18 Aspirin/Acetaminophen/Caffeine 1 ea PO DAILY 03/21/18 08/13/18 [Excedrin Migraine Caplet] Probiotic 1 ea PO DAILY 03/21/18 08/13/18 cholecalciferol (vitamin D3) 1,000 unit PO DAILY 03/21/18 08/13/18 cholestyramine (with sugar) 4 g PO BID packet 03/21/18 08/13/18 dextroamphetamine-amphetamine 20 mg PO DAILY tab-cap 03/21/18 08/13/18 [Adderall XR] multivitamin [Daily Multiple] 1 ea PO DAILY 03/21/18 08/13/18 omega 5-nxj-szs-fish oil [Fish Oil] 2,000 mg PO BID 03/21/18 08/13/18 vitamin B complex [B 1 ea PO DAILY 03/21/18 08/13/18 Complex-Vitamin B12] vitamin E 400 unit PO DAILY 03/21/18 08/13/18 lisinopril 10 mg tablet 10 mg PO DAILY 10/01/18 01/12/19 prochlorperazine maleate 5 mg 5 mg PO Q8H PRN PRN #60 tab 05/02/18 08/13/18 tablet ropinirole 1 mg tablet 1 mg PO HS #30 tab 05/02/18 08/13/18 topiramate 25 mg tablet 25 mg PO HS #60 tab 07/04/18 08/13/18 hydrocodone-acetaminophen [[place]] 1 - 2 tab PO Q4H PRN 08/05/18 08/13/18 ibuprofen 200 mg PO QID PRN 08/05/18 08/13/18 pseudoephedrine HCl [Sudafed] 08/05/18 08/12/18 Previous Rx's Medication Instructions Recorded prochlorperazine maleate 5 mg 5 mg PO Q8H PRN PRN #60 tab 05/02/18 tablet ropinirole 1 mg tablet 1 mg PO HS #30 tab 05/02/18 topiramate 25 mg tablet 25 mg PO HS #60 tab 07/04/18 Allergies Allergy/AdvReac Type Severity Reaction Status Date / Time No Known Allergies Allergy Unverified 08/13/18 21:56 Review of Systems Constitutional Denies fever(s) and Denies weakness Musculoskeletal Denies numbness and Denies tingling Integumentary/Breasts Denies erythema and Reports wounds Neurologic Denies focal weakness, Denies numbness, Denies sensory deficit, Denies tingling, Denies paresthesias and Denies weakness [facility] Medical History Erectile dysfunction (Chronic) Colon cancer (Resolved) ADHD (Chronic) Depression with anxiety (Chronic) BMI 37.0-37.9, adult (Chronic) Pre-diabetes (Chronic) Gout (Chronic) Obstructive sleep apnea on CPAP (Chronic) Headache, chronic migraine without aura (Chronic) Hyperlipidemia (Chronic) Hypertension (Chronic) Hemorrhoids (Chronic) Dilated cardiomyopathy (Acute) Headache (Resolved) History of hypertension (Resolved) Surgical History H/O umbilical hernia repair (Acute) Leg fracture (Acute) S/P partial colectomy (Acute) Repair of umbilical hernia (Resolved) Social History household members: spouse and children current occupation: [employer], [employer]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 Exam Const General: cooperative, comfortable and no acute distress Orientation: alert and oriented x3 Skin Other: Incision in the right hand/wrist area has opened up along the entire incision. Granulation tissue below the dermis is intact. It looks pink and viable. There is no drainage. There is no foul smell. There is no erythema.
== END 2018-08-13 22:28 | disposition home or self-care (01) ==
PROVIDERS: Emergency Provider Emergency Medicine; PCP Family Medicine
DX: L76.82 Other postprocedural complications of skin and subcutaneous tissue (principal); T81.31XA Disruption of external operation (surgical) wound, not elsewhere classified, initial encounter; Y83.8 Other surgical procedures as the cause of abnormal reaction of the patient, or of later complication, without mention of misadventure at the time of the procedure; I10 Essential (primary) hypertension
CPT/HCPCS: 99282

== ENCOUNTER 2018-10-26 01:44 | Outpatient (CLI) | payer BC, SELFPAY ==
--- NOTE | 2018-10-26 10:26 | DI.RAD_ITS ---
SYMPTOMS/DIAGNOSIS: LT KNEE JOINT PAIN > 3 MONTHS, M25.562, PAIN AND PREPATELLAR SWELLING, S/P FALL ON KNEECAP IN 2018 LEFT KNEE: There is mild spurring at the medial femoral tibial and patellofemoral joints. There is no joint effusion. The joint spaces are well maintained. There is anterior soft tissue swelling which could represent prepatellar bursitis or post traumatic swelling. There is no evidence of fracture. IMPRESSION: Soft tissue swelling anterior to the patella.
== END 2018-10-26 02:04 ==
PROVIDERS: PCP Family Medicine; Visit Provider Family Medicine
DX: M25.562 Pain in left knee (principal); M79.89 Other specified soft tissue disorders
CPT/HCPCS: 73562

== ENCOUNTER 2018-10-28 14:26 | Outpatient (CLI) | payer BC, SELFPAY ==
--- NOTE | 2018-10-28 15:17 | DI.CT_ITS ---
SYMPTOM/DIAGNOSIS: SINUS PRESSURE, COUGH, CHRONIC HEADACHES, ? SINUSITIS, R51 SINUS CT: CT examination of the paranasal sinuses was performed utilizing multi slice acquisition and multi planar reconstruction. There is mild mucoperiosteal thickening of maxillary and ethmoid sinuses bilaterally. Sphenoid and frontal sinuses appear clear. The ostiomeatal complexes of the maxillary antra show patent infundibuli bilaterally. There is a small left middle turbinate, correlation requested regarding any previous surgical procedures. The temporal bone structures appear intact and mastoid air cells are clear. The orbital structures appear intact. CONCLUSION: Mild chronic maxillary and ethmoid sinusitis bilaterally with mild mucoperiosteal thickening noted. No other significant findings.
== END 2018-10-28 14:46 ==
PROVIDERS: PCP Family Medicine; Visit Provider Family Medicine
DX: R51 Headache (principal); R05 Cough; J32.0 Chronic maxillary sinusitis; J32.2 Chronic ethmoidal sinusitis
CPT/HCPCS: 70486

== ENCOUNTER 2019-06-07 13:53 | Outpatient (REF) | payer BC, SELFPAY ==
[2019-06-07 15:03] LABS: HCT 42.3 % (40.0-50.0); HGB 14.2 g/dL (13.5-17.5); Mean Corp. HGB Concentration 33.6 g/dL (32.0-36.0); Mean Corpuscular Hemoglobin 28.7 pg (27.0-33.0); Mean Corpuscular Volume 85.6 fL (80-95); Mean Platelet Volume 9.6 fL (8.0-11.0); Platelet Count 262 x1000/uL (130-400); RBC 4.94 m/cumm (4.50-6.00); RBC Distribution Width 14.1 % (11.8-14.1)
[2019-06-07 15:17] LABS: ALT 57 U/L (16-63); AST 22 U/L (15-37); Albumin 4.1 g/dL (3.4-5.0); Alkaline Phosphatase 84 U/L (46-116); Anion Gap 12.3 mmol/L (3-11); BUN 27 mg/dL (7-18); Bilirubin, Total 0.9 mg/dL (0.2-1.0); CO2 22.7 mmol/L (21.0-32.0); CREATININE 1.24 mg/dL (0.70-1.30); Calcium 9.4 mg/dL (8.5-10.1); Calculated LDL 47 mg/dL; Chloride 106 mmol/L (98-107); Cholesterol 143 mg/dL (50-200); Estimated GFR 59.88 (mL/min/1.73m2); Glucose 119 mg/dL (70-100); HDL Cholesterol 41 mg/dL (40-60); Potassium 3.8 mmol/L (3.5-5.1); Sodium 141 mmol/L (136-145); Total Protein 7.3 g/dL (6.4-8.2); Triglyceride 277 mg/dL (30-150)
[2019-06-07 15:52] LABS: Hemoglobin A1C 6.2 % (4.5-6.2)
== END 2019-06-07 14:13 ==
LOC: NCHCN 13:53
PROVIDERS: PCP Family Medicine; Visit Provider Family Medicine
DX: I10 Essential (primary) hypertension (principal); R73.01 Impaired fasting glucose; E78.5 Hyperlipidemia, unspecified; M10.9 Gout, unspecified
CPT/HCPCS: 80053; 80061; 85027; 83036

== ENCOUNTER 2019-06-26 10:04 | Day surgery (SDC) | payer BC, SELFPAY ==
[2019-06-26 10:17] VITALS: BP 139/90; PULSE 61; RESP 16; TEMP 37.1; O2SAT 96
[2019-06-26] MEDS: Lactated Ringers 1,000 ML 80 ML IV (11:18)
[2019-06-26] MEDS: ceFAZolin 1 GM/50 ML BAG IVPB (12:20)
[2019-06-26] MEDS: Bupivacaine 0.5% Pres-Free 30 ML VIAL (12:47)
--- NOTE | 2019-06-26 12:59 | W.PM.DSUDISC ---
Discharge Plan Disposition Patient Disposition: HOME Condition: Good Discharge Details Reason For Visit: L ECTR Attending Provider: Lamont Rockwell Primary Care Provider: Rosalba Ferguson Home Meds and New Rx's Prescriptions: New hydrocodone-acetaminophen 5-325 mg tablet 1 tab PO Q6H PRN (Reason: pain) Qty: 7 RF: 0 Continued lisinopril 10 mg tablet 10 mg PO DAILY RF: 0 prochlorperazine maleate 5 mg tablet 5 mg PO Q8H PRN PRN (Reason: nausea or headache) Qty: 60 RF: 3 ropinirole 1 mg tablet 1 mg PO HS Qty: 30 RF: 0 sumatriptan succinate 100 mg tablet See Rx Instructions PO .COMPLEX Qty: 12 RF: 3 topiramate 100 mg tablet 100 mg PO QHS Qty: 90 RF: 3 Aspirin/Acetaminophen/Caffeine [Excedrin Migraine Caplet] 1 EACH tablet 1 ea PO DAILY RF: 0 multivitamin [Daily Multiple] 1 EACH tablet 1 ea PO DAILY RF: 0 dextroamphetamine-amphetamine [Adderall XR] 20 MG capsule,extended release 24hr 20 mg PO DAILY RF: 0 vitamin B complex [B Complex-Vitamin B12] 1 EACH tablet 1 ea PO DAILY RF: 0 vitamin E 400 UNIT capsule 400 unit PO DAILY RF: 0 cholestyramine (with sugar) [[place]ran] 4 GM packet 4 g PO BID PRNRF: 0 cholecalciferol (vitamin D3) 1,000 UNIT tablet 1,000 unit PO DAILY RF: 0 omega 5-vvd-dyz-fish oil [Fish Oil] 1,000 MG capsule 2,000 mg PO BID RF: 0 Probiotic 1 EACH capsule 1 ea PO DAILY RF: 0 venlafaxine 75 MG tablet 75 mg PO DAILY RF: 0 propranolol 20 mg Tablet 20 mg PO BID RF: 0 ibuprofen 200 mg Capsule 200 mg PO QID PRNRF: 0 pseudoephedrine HCl [Sudafed] 30 mg Tablet RF: 0 Discharge Instructions Additional Instructions: Elevate L hand above heart level as much as possible overnite tonite. Bend and straighten fingers L hand 10 times/hour when awake to prevent swelling. Keep dressings and splint dry and intact for 48 hours. After 48 hours, remove splint and dressings and begin to move L wrist. Use L hand as much as your discomfort allows. After you remove the dressings, you may shower or wash and get incision wet. Leave incision uncovered when it is dry and sealed. Your fingers may stay numb for 24 hours due to nerve block I put in to decrease post-op pain. Follow up with in 2 weeks. Take ibuprofen or tylenol for mild pain. Take hydrocodone for breakthru pain, if needed. Referrals: Lamont Rockwell MD [ [facility] STAFF PHYSICIAN] - (f/u in 2 weeks.) Equipment/Supplies: Splint Activity:: Activity as Tolerated Remove Dressings/Wound Care:: 48 hours Shower/Bathe:: 48 hours Diet:: As Tolerated Discharge Orders Discharge Orders: Discharge Order (Routine); Ordered 06/26/19 Ordered By: Lamont Rockwell DS: Diagnosis Discharge Diagnosis (1) Carpal tunnel syndrome on both sides: Status: Acute
[2019-06-26 13:40] VITALS: BP 135/84; PULSE 64; RESP 18; TEMP 36.6; O2SAT 96
--- NOTE | 2019-06-26 14:33 | ROE_ITS ---
DATE OF PROCEDURE: June 26, 2019 PREOPERATIVE DIAGNOSIS: Bilateral carpal tunnel syndrome. POSTOPERATIVE DIAGNOSIS: Same. PROCEDURE: Endoscopic carpal tunnel release, left. ANESTHESIA: IV Regional, Harry Martinez CRNA SURGEON: Lamont Rockwell M.D. INDICATIONS: This is a 58-year-old white male with long-standing bilateral carpal tunnel syndrome. Although his symptoms are significant on both sides, his left side is the most painful for him now. His diagnosis has been confirmed with nerve conduction studies. Conservative treatment is no longer alleviating his symptoms. Bilateral ECTR was recommended to alleviate his symptoms. The patient wis hes to proceed with the left side first, followed by the right side when he is fully recovered from t he left. The risks and complications of the procedure have been explained to the patient in detail p reoperatively. PROCEDURE: The patient was taken to the Operating Room on 06/26/19. He was given an IV regional ane sthetic to the left upper extremity and placed supine on the operating table. The left hand, wrist a nd forearm were prepped and draped free. Betadine prep was used because the patient is allergic to c hlorhexidine. An incision was made in line with the proximal flexion crease of the wrist, beginning at the flexor c arpi radialis and extending to the flexor carpi ulnaris tendon. Subcutaneous veins were cauterized. The palmaris longus tendon was present and was retracted radially, and then a distally-based fascial flap was raised to gain access to the carpal tunnel. A synovial reflector was used to free up any s oft tissue attachments to the undersurface of the volar carpal ligament. A series of obturators were then inserted to make room for the endoscope. The Addy endoscope blade device was then inserted in the carpal canal and advanced until the distal e dge of the volar carpal ligament was clearly visualized. Care was taken to position the endoscope on the ulnar side of the carpal canal throughout the procedure. When the distal edge of the volar carp al ligament was clearly visualized, the trigger was depressed, elevating the blade. The elevated wolf de was then brought out from distal to proximal out through the incision, transecting the volar carpa l ligament. The blade was then depressed, the endoscope was inserted in the carpal canal. I was abl e to visualize the median nerve falling into the defect made by transecting the volar carpal ligament . The endoscope was then removed from the carpal canal. The fascia was split subcutaneously for abo ut two inches proximal to the incision using Littler scissors. The wound was irrigated with saline s olution. A median nerve block was performed with 0.5% Marcaine solution and the skin edges of the in cision were infiltrated with 0.5% Marcaine with an epinephrine solution. The skin was closed with tw o interrupted horizontal mattress sutures of #4-0 nylon suture material. The wound was dressed with Xeroform gauze, sterile gauze 4x4's, wrapped with a Kerlix bandage and then wrapped with an RAFAEL haider ge. A commercial cockup wrist splint was applied. The patient's IV regional anesthesia was reversed without complications. He was discharged to the recovery room in good condition. The patient was later discharged home from the Day Surgery Unit when fully recovered from his IV erica onal anesthesia. He was given instructions to elevate his left hand above heart level as much as pos sible overnight tonight. He was encouraged to bend and straighten his fingers ten times an hour whil e awake to prevent swelling. He is to keep his splint and dressings dry for 48 hours. After 48 hour s he will remove his splint and dressings. He may then shower and get his incision wet. He can leav e the incision uncovered when it is dry and sealed. He may use his left wrist as much as discomfort allows. He will take Tylenol or ibuprofen for mild pain. He was given a prescription for breakthrou gh pain of Hydrocodone with APAP 5/325 one tablet every six hours, as needed. He will follow-up with me in two weeks.
== END 2019-06-26 13:55 | disposition home or self-care (01) ==
PROVIDERS: PCP Family Medicine; Visit Provider Orthopaedic Surgery
PROC: 01N54ZZ Release Median Nerve, Percutaneous Endoscopic Approach (ICD-10-PCS; CPT 29848; principal; 2019-06-26 11:00)
DX: G56.02 Carpal tunnel syndrome, left upper limb (principal); G47.33 Obstructive sleep apnea (adult) (pediatric); I10 Essential (primary) hypertension
CPT/HCPCS: 29848; J0690; J2250; L3908

== ENCOUNTER 2019-12-28 02:47 | Outpatient (CLI) | payer BC, SELFPAY ==
--- NOTE | 2019-12-28 09:30 | DI.US_ITS ---
EXAM: US ABDOMEN CLINICAL HISTORY: ABNL LIVER FUNCTION TESTS, R94.5,OBESITY,E66.09 TECHNIQUE: Ultrasound performed using standard protocol. COMPARISON: CT CHEST ABD PELVIS WITH CONTRAST from 08/31/2016 CT CHEST FOR PULMONARY EMBOLUS from 02/20/2018 FINDINGS: The prior disease ureter with this way liver is normal in size which shows moderately increased echog enicity, consistent with hepatic steatosis. No focal liver lesions or biliary dilatation is seen. T he gallbladder is unremarkable, without evidence of stones or wall thickening. The visualized portio ns of pancreas are unremarkable. A small accessory spleen is seen. There is no splenomegaly. These small cysts are seen on the left kidney. No ascites present. The aorta is normal in diameter. IMPRESSION: Moderate hepatic steatosis. DATA REPOSITORY:
== END 2019-12-28 03:07 ==
PROVIDERS: PCP Family Medicine; Visit Provider Internal Medicine Gastroenterology
DX: R94.5 Abnormal results of liver function studies (principal); E66.09 Other obesity due to excess calories; K76.0 Fatty (change of) liver, not elsewhere classified
CPT/HCPCS: 76700

== ENCOUNTER 2020-04-24 08:30 | Outpatient (REF) | payer BC, SELFPAY ==
[2020-04-24 11:15] LABS: Anion Gap 10.4 mmol/L (3-11); BUN 26 mg/dL (7-18); CO2 21.6 mmol/L (21.0-32.0); CREATININE 1.16 mg/dL (0.70-1.30); Calcium 8.9 mg/dL (8.5-10.1); Chloride 107 mmol/L (98-107); Glucose 143 mg/dL (74-106); Potassium 3.7 mmol/L (3.5-5.1); Sodium 139 mmol/L (136-145)
== END 2020-04-24 08:50 ==
LOC: NCHCN 08:30
PROVIDERS: PCP Family Medicine; Visit Provider Family Medicine
DX: R73.03 Prediabetes (principal); E78.5 Hyperlipidemia, unspecified; I10 Essential (primary) hypertension
CPT/HCPCS: 80048; 83036

== ENCOUNTER 2020-08-29 20:29 | Outpatient (REF) | payer BC, SELFPAY ==
[2020-08-29 18:20] LABS: HCT 40.6 % (40.0-50.0); HGB 13.6 g/dL (13.5-17.5); MCH 29.1 pg (27.0-33.0); MCHC 33.5 % (32.0-36.0); MCV 86.8 fL (80-95); MPV 9.4 fL (8.0-11.0); Platelet Count 254 10^3/uL (130-400); RBC 4.68 10^6/uL (4.36-5.78); RDW 12.9 % (11.8-14.1); RDW-SD 40.6 fL; WBC 4.72 10^3/uL (4.4-10.8)
[2020-08-29 18:30] LABS: Bilirubin Negative (Negative); Blood Negative (Negative); Clarity Clear (Clear); Glucose Negative (Negative); Ketones Negative (Negative); Leukocyte Esterase Negative (Negative); Nitrite Negative (Negative); Urobilinogen 0.2 EU/dL (Up TO 0.2); pH 6.5 (5-8)
[2020-08-29 18:52] LABS: ALT 50 U/L (16-63); AST 25 U/L (15-37); Albumin 3.8 g/dL (3.4-5.0); Alkaline Phosphatase 85 U/L (46-116); Anion Gap 7.4 mmol/L (3-11); BUN 28 mg/dL (7-18); Bilirubin, Total 0.8 mg/dL (0.2-1.0); CO2 25.6 mmol/L (21.0-32.0); CREATININE 1.5 mg/dL (0.70-1.30); Calcium 9.7 mg/dL (8.5-10.1); Chloride 105 mmol/L (98-107); Estimated GFR 47.74 (mL/min/1.73m2); Glucose 161 mg/dL (74-106); Potassium 3.6 mmol/L (3.5-5.1); Sodium 138 mmol/L (136-145)
== END 2020-08-29 20:49 ==
LOC: NCHCN 20:29
PROVIDERS: PCP Family Medicine; Visit Provider Family Medicine
DX: R10.31 Right lower quadrant pain
CPT/HCPCS: 80053; 85027; 81003

== ENCOUNTER 2020-09-02 01:41 | Outpatient (CLI) | payer BC, SELFPAY ==
--- NOTE | 2020-09-02 13:09 | DI.CT_ITS ---
EXAM: CT RENAL COLIC WO CLINICAL HISTORY: ABD PAIN, R10.9,RT FLANK PAIN, R10.9,? KIDNEY STONE OR DIVERTICULITIS OR GB. TECHNIQUE: Imaging Protocol: Axial computed tomography images with coronal and sagittal reformatted images were created and reviewed. COMPARISON: CT CHEST ABD PELVIS WITH CONTRAST from 08/31/2016 CT CHEST WITH CONTRAST from 12/29/2017 CT CHEST FOR PULMONARY EMBOLUS from 02/20/2018 FINDINGS: ABDOMEN: Lung Bases: There are 2 stable 3 mm nodules in the left lower lobe. Liver: There is diffuse decreased attenuation in the liver consistent with fatty infiltration. No me asurable mass. Gallbladder and biliary tract: No radiodense calculus or biliary ductal dilation. Pancreas: Normal density, no abnormal calcifications or inflammatory process. Spleen: Normal. Note is made of 2 accessory spleens. Kidneys: Normal size, contour and axis.There are 6 nonobstructing stones seen in the left kidney. Th e largest measures 3 mm. There is a faint nonobstructing 2 mm stone in the lower pole of the right k idney. There is a 6 mm intramural urinary bladder stone on the right causing mild dilatation of the right renal collecting system. No masses seen. Adrenal glands: No mass is seen. Lymph nodes: Within normal limits. Abdominal Aorta: Abdominal portion non-dilated. Moderate atherosclerosis. PELVIS: Bladder:The urinary bladder is incompletely distended. There is thickening of the wall of the urinar y bladder which is likely due to the lack of distention. No inflammatory changes are seen around the urinary bladder to suggest infection. Bowel: No obstruction or bowel wall thickening. No evidence of appendicitis. There is an enterocolic anastomosis in the right abdomen. Peritoneal cavity: No ascites, collection or mesenteric inflammatory response. No free air. Reproductive organs: Within normal limits. Bones: Degenerative changes are present in the spine. Soft Tissues: Bilateral fat containing inguinal hernia are noted. IMPRESSION: 1. There is a 6 mm stone within the wall of the urinary bladder on the right causing mild hydronephro sis. 2. Bilateral nephrolithiasis. 3. Hepatic steatosis. 4. Stable left lower lobe pulmonary nodules. RADIATION DOSE DELIVERED: 1,168.54mGy.cm Total DLP DATA REPOSITORY: All CT scans at this facility are submitted to the National Radiology Data Registry (NRDR) Dose Index Registry (DIR) with the [employer] (ACR). RADIATION OPTIMIZATION: All CT scans at this facility use at least one of these dose optimization te chniques: automated exposure control; mA and/or kV adjustment per patient size (includes targeted exa ms where dose is matched to clinical indication); or iterative reconstruction.
== END 2020-09-02 02:01 ==
PROVIDERS: PCP Family Medicine; Visit Provider Family Medicine
DX: N21.0 Calculus in bladder (principal); N13.2 Hydronephrosis with renal and ureteral calculous obstruction; K76.0 Fatty (change of) liver, not elsewhere classified; R91.8 Other nonspecific abnormal finding of lung field
CPT/HCPCS: 74176

== ENCOUNTER 2020-10-09 09:38 | Outpatient (REF) | payer BC, SELFPAY ==
--- OUTSIDE RECORDS SUMMARY | 2020-10-09 09:40 | XMS_ITS ---
:1960 Author Care Team Providers Name Role Phone DR. MAY SADLER Referring Provider [phone] MAY SADLER Primary Care Provider [phone] [facility] Primary Care Provider [phone] Allergies Code Code System Name Reaction Severity Status Onset NKDA ? Medications Name Status Start Date Stop Date ? ? amoxicillin 875 mg-potassium Completed ? clavulanate 125 mg tablet aspirin Active ? Not available 81mg daily cholestyramine (with sugar) 4 gram Active ? Not available powder for susp in a packet Cinnamon Completed ? 03/29/2018 500mg daily Compact Space Chamber Active ? Not availa ble dextroamphetamine-amphetamine ER 20 mg Active ? Not available 24hr capsule,extend release doxycycline hyclate 100 mg tablet Completed ? 02/22/2018 Fish Oil Active ? Not available as directed Flax Seed Oil Active ? Not available as directed Flovent HFA 220 mcg/actuation aerosol Active ? Not available inhaler Ginkoba Completed ? 03/29/2018 1 BID hydrochlorothiazide 25 mg tablet Completed ? 03/29/2018 multivitamin Active ? Not available BID prednisone 20 mg tablet Completed ? 03/29/20 18 propranolol ER 60 mg capsule,24 Active ? Not available hr,extended release ropinirole 0.25 mg tablet Completed ? 2017 take one PO 2-3 hours before bed for on e week then increase to two tablets for one week ropinirole 1 mg tablet Active ? Not avail able take 1 PO 2-3 hours before bedtime rosuvastatin 20 mg tablet Active ? Not av ailable topiramate 100 mg tablet Active ? Not karyn ilable Take 1 tablet every day by oral route at bedtime. venlafaxine ER 150 mg capsule,extended Active ? Not available release 24 hr vitamin B complex Active ? Not available 1 daily Vitamin C Active ? Not available 1 tab daily Vitamin D Active ? Not available 1 tab daily vitamin E Active ? Not available 1 tab daily Zoloft Completed ? 03/29/2018 1.5 tabs daily= 150mg zolpidem 5 mg tablet Completed ? 03/29/2018 take 1 PO night of study PRN, may repeat x 1 if needed Problems Name Status Onset Date Source ? Mixed Anxiety and Depressive Disorder Active 02/18/2018 ? Tobacco User Active 02/18/2018 ? Chronic Tension-type Headache Active 02/18/2018 ? Hypertensive Disorder Active 02/18/2018 ? Non-alcoholic Fatty Liver Active 02/18/2018 ? Primary Erectile Dysfunction Active 02/18/2018 ? Attention Deficit Hyperactivity Disorder, Active 2017 ? 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 Sleep Apnea Active ? ? Procedures None recorded. Results Lab Results Date Name Specimen Result Interpretation Description Value Range Status Address ? 03/29/2018 TSH, Serum ? No observation ? ? ? [facility] or Plasma recorded. [facility]: [address] [place] [address] 03/29/2018 Ferritin, ? No observation ? ? ? [facility] Serum or recorded. [facility]: [address] [place] [address] Past Encounters None recorded. Social History Tobacco Smoking Status Never Smoker Vaccine List None recorded. Plan of Care Reminders Provider Appointments None ? ? recorded. Lab None ? ? recorded. Referral None ? ? recorded. Procedures None ? ? recorded. Surgeries None ? ? recorded. Imaging None ? ? recorded. Vitals 01/19/2019 12:30PM Office 30 Height Weight BMI Blood Pressure 177.8 cm 116.62 kg 36.9 kg/m2 140/78 mm[Hg] 05/16/2018 09:30AM Office 30 Height Weight BMI Blood Pressure 177.8 cm 118.21 kg 37.4 kg/m2 160/98 mm[Hg] 03/29/2018 08:30AM Office 30 Height Weight BMI Blood Pressure 177.8 cm 116.57 kg 36.9 kg/m2 150/98 mm[Hg] 02/22/2018 11:15AM New Patient 45 Height Weight BMI Blood Pressure 177.8 cm 113.4 kg 35.9 kg/m2 146/88 mm[Hg]
--- OUTSIDE RECORDS SUMMARY | 2020-10-09 09:40 | XMS_ITS ---
:1960 External Reference #:[id number] Author Care Team Providers Name Role Phone [facility] Primary Care Provider Unavailable Allergies None recorded. Medications Name Status Start Date Stop Date ? ? amoxicillin 875 mg-potassium Active ? Not available clavulanate 125 mg tablet B Complex Active ? Not available cholecalciferol (vitamin D3) 125 mcg (5,000 unit) capsule Comple salomon ? 11/02/2017 Take 1 capsule every day by oral route. cholestyramine (with sugar) 4 gram Active ? Not available powder for susp in a packet compounded medication Active ? Not availa ble Ther-biotic Powder 1/4 tsp 2 xday until finish bottle then take capsules compounded medication Active ? Not availa ble THo/dayrne Multi 2 1 cap 2xday compounded medication Active 01/11/2018 Not availa ble Sacro-B Sacro-B1 cap 3x a day compounded medication Active ? Not availa ble GI FORTIFY powder 1/2 tsp am and pm for 3 days1 tsp am an d pm for 3 [id number] AM and PM for a month compounded medication Active ? Not availa ble Pro-omega 2000 1 cap 2xday compounded medication Active ? Not availa ble vitamin d-mulsion 5 drops a day retest vit D blod level in 6 weeks D-Mulsion 1000iu Completed ? 11/02/2017 Take 1, 2, 3, , 4, or 5 drop/day 5 drops /day until we re-test blood in 6-8 weeks dextroamphetamine-amphetamine ER Active ? Not available 20 mg 24hr capsule,extend release doxycycline hyclate 100 mg tablet Active ? Not available GaviLyte-N 420 gram oral solution Completed ? 07/20/2017 hydrochlorothiazide 25 mg tablet Active ? Not available metronidazole 500 mg tablet Completed ? 07/02 Multi Vitamin Active ? Not available 2 /day of a one a day vitamin neomycin 500 mg tablet Completed ? 7 ondansetron HCl 8 mg tablet Completed ? 07/02 prednisone 20 mg tablet Active ? Not avai lable propranolol 60 mg tablet Active ? Not karyn ilable propranolol ER 60 mg capsule,24 Active ? Not available hr,extended release rosuvastatin 20 mg tablet Active ? Not av ailable tramadol 50 mg tablet Completed ? 07/20/2017 venlafaxine ER 150 mg Active ? Not availa ble capsule,extended release 24 hr vitamin E Active ? Not available 1 Problems Name Status Onset Date Source ? Benign Prostatic Hyperplasia Active 07/20/2017 ? Fatigue Active 07/20/2017 ? Adult Health Examination Active 07/20/2017 ? Vitamin D Deficiency Active 08/31/2017 ? Hyperhomocysteinemia Active 08/31/2017 ? Hypertriglyceridemia Active 08/31/2017 ? Hyperlipidemia Active 08/31/2017 ? Anxiety Active 08/31/2017 ? Chronic Depression Active 08/31/2017 ? Essential Hypertension Active 08/31/2017 ? Steatosis of Liver Active 08/31/2017 ? Renal Impairment Active 08/31/2017 ? Prediabetes Active 08/31/2017 ? History of Malignant Neoplasm of Colon Active 8 ? Abnormal Renal Function Active 11/02/2017 ? Diarrhea Active 11/29/2017 ? Anemia Active 01/11/2018 ? Urgent Desire to Urinate Active 01/11/2018 ? Procedures None recorded. Results Lab Results Date Name Specimen Result Interpretation Description Value Range Status Address ? 07/22/2017 Lipid serum High Chol 229 mg/dL <200 Final [facility] Panel, mg/dL Diagnostic s: Serum [address] [place] ? ? serum High Trig 400 mg/dL <149 [facility] mg/dL Diagnostic s: [address] [place] [address], [place] ? ? serum High Ldl 116.2 <99.0 [facility] mg/dL mg/dL Diagnostic s: [address] [place] [address], [place] ? ? serum ? Hdl 40 mg/dL >39 mg/dL [facility] Diagnostic s: [address] [place] [address], [place] ? ? serum ? LDL/HDL 2.9 ratio ? [facility] Diagnostic s: [address] [place] [address], [place] ? ? serum High Trig/hd 10.0 <2.0 [facility] l ratio ratio Diagnostic s: [address] [place] [address], [place] ? ? serum ? Chol/hd 5.7 ratio ? [facility] l Diagnostic s: [address] [place] [address], [facility] [place] ? ? serum High Vldl 80.0 <30.0 [facility] mg/dL mg/dL Diagnostic s: [address] [place], [facility] el 07/22/2017 Lipoprotein Serum ? Lipopro <2 mg/dL <=29 [facility] (a), Serum tein (a) mg/dL Diag nostics: [address] [place], [facility] 07/22/2017 Mthfr Whole ? Mthfr whole ? [facility] (Methylenet Blood PCR blood Diagn ostics: etrahydrofo Specimen [address] [place], Reductase) [place] Mutation, Blood/tissu e ? ? Whole ? Mthfr negative ? [facility]ation Diagnost ics: : [id number] [place] , [facility] ? ? Whole ABNORMAL Mthfr heterozyg ? Final [facility] Blood Mutation ous Diagnost ics: : [id number] [place] , C [facility] ? ? Whole ? Mthfr see note ? Final [facility] Blood Interpre Diagnost ics: tation [address] [place], [facility] 07/20/2017 Vitamin serum High Vitamin [phone] [facility] B12, Serum B12 pg/mL pg/mL Diagno stics: [address] [place], [facility] 07/20/2017 CMP, Serum serum High Glucose 107 mg/dL <100 [facility] or Plasma mg/dL Diagnos tics: [address] [place], [facility] ? ? serum ? Bun 25 mg/dL 7-25 [facility] mg/dL Diagnostic s: [address] [place], [facility] ? ? serum High Creatin 1.39 0.60-1.20 [facility] ine mg/dL mg/dL Diagnostic s: [address] [place], [facility] ? ? serum ? BUN / 18.0 6.0-21.0 [facility] Creatini ratio ratio Diagnost ics: ne Ratio [address] [place], [facility] [place] ? ? serum ? eGFR 65 >60 [facility] mL/min/1. mL/min/1. [place] [facility]: Bahamian 73m2 73m2 [address] [place], [place] ? ? serum Low eGFR 56 >60 [facility] Non-afri mL/min/1. mL/min/1. Di agnostics: can 73m2 73m2 [address] [place] [address] , [place] ? ? serum ? Sodium 140 135-145 [facility] mmol/L mmol/L Diagnostic s: [address] [place] [address], [place] ? ? serum ? Potassi 3.8 3.5-5.1 [facility] um mmol/L mmol/L Diagnostic s: [address] [place] [address], [place] ? ? serum ? Chlorid 101 98-107 [facility] e mmol/L mmol/L Diagnostic s: [address] [place] [address], [place] ? ? serum ? Co2 28 mmol/L 21-31 [facility] mmol/L Diagnostic s: [address] [place] [address], [place] ? ? serum ? Anion 11 mEq/L 5-15 [facility] Gap mEq/L Diagnostic s: [address] [place] [address], [place] ? ? serum ? Calcium 10.3 8.6-10.3 [facility] mg/dL mg/dL Diagnostic s: [address] [place], [place] ? ? serum ? Total 7.1 g/dL 6.4-8.9 [facility] Protein g/dL Diagnosti cs: [address] [place], [place] ? ? serum ? Albumin 4.6 g/dL 3.5-5.7 [facility] g/dL Diagnostic s: [address] [place] [address], [place] ? ? serum ? Globuli 2.5 g/dL 1.9-3.5 [facility] n g/dL Diagnostic s: [address] [place] [address], [place] ? ? serum ? Albumin 1.8 ratio 0.8-2.0 Final [facility] / ratio Diagnostic s: Globulin [address] [place], [place] ? ? serum ? Tbili 0.9 mg/dL 0.1-1.5 [facility] mg/dL Diagnostic s: [address] [place], [place] ? ? serum ? Alk. 76 IU/L 45-115 [facility] Phosphat IU/L Diagnost ics: ase [address] [place], [facility] ? ? serum ? Ast 17 IU/L 13-39 [facility] IU/L Diagnostic s: [address] [place], [facility] ? ? serum ? Alt 30 IU/L 7-52 IU/L [facility] Diagnostic s: [address] [place], [facility] 07/20/2017 Ferritin, serum ? Ferriti 114.1 30.0-400. [facility] Serum or n NG/mL 0 NG/mL Diagnos tics: Plasma [address] [place], [facility] 07/20/2017 Folate, serum ? Folate >20.0 4.6-34.8 [facility] Serum NG/mL NG/mL Diagnostic s: [address] [place] [address], [facility] 07/20/2017 PSA, Serum serum ? Psa 0.27 <4.00 [facility] or Plasma NG/mL NG/mL Diagnos tics: [address] [place] [address], [facility] 07/20/2017 Vitamin D, serum Low Vitamin 27.8 30.0-100. [facility] 25-Hydroxy, D 25-Oh NG/mL 0 NG/mL [place] [facility]: Total, [address] [place], [facility] 07/20/2017 Iron + serum ? Iron 123 ug/dL 50-212 Final [facility] Total ug/dL Diagnostic s: Iron-bindin [address] [place], (TIBC), [facility] rel Serum ? ? serum ? Transfe 323.2 203.0-362 [facility] rrin mg/dL .0 mg/dL Diagnost ics: [address] [place], [facility] ? ? serum High Tibc 462.2 250.0-450 [facility] ug/dL .0 ug/dL Diagnost ics: [address] [place], [facility] ? ? serum ? Uibc 339.2 155.0-355 [facility] ug/dL .0 ug/dL Diagnost ics: [address] [place], [facility] ? ? serum ? %Satura 26.6 % 14.0-50.0 [facility] tion % Diagnostic s: [address] [place], [facility] 07/20/2017 TSH, Serum serum ? Tsh 1.49 0.40-4.50 [facility] or Plasma uIU/mL uIU/mL Diagnos tics: [address] [place] [address], [facility] 07/20/2017 T4, Free, serum ? Free T4 1.29 0.93-1.70 [facility] Serum NG/dL NG/dL Diagnostic s: [address] [place], [facility] 07/20/2017 T3, Free, serum ? Free T3 3.37 2.00-4.90 [facility] Serum or pg/mL pg/mL Diagnost ics: Plasma [address] [place] [address], [facility] 07/20/2017 Dhea, Serum Serum ? Dehydro 1.200 0.630-4.7 Fin al [facility] epiandro NG/mL 00 NG/mL Diagno stics: sterone [address] [place], [facility] 07/20/2017 HbA1C wholebloo High Hgb a1C 5.8 % 4.0-5.7 % [facility] (Hemoglobin d Diagn ostics: a1C), Blood [address] [place], [facility] 07/20/2017 CBC W/ Auto wholebloo ? White 6.0 4.0-11.0 Fin al [facility] Diff d Blood 10^3/uL 10^3/uL Diagnost ics: Cell [address] [place], [facility] ? ? wholebloo ? Red 4.93 4.00-6.00 Final [facility] d Blood 10^6/uL 10^6/uL Diagnost ics: Cell [address] [place], [facility] ? ? wholebloo ? Hemoglo 14.3 g/dL 13.5-18.0 [facility] d bin g/dL Diagnostic s: [address] [place] [address], [facility] ? ? wholebloo Low Hematoc 41.9 % 42.0-52.0 Final [facility] d rit % Diagnostic s: [address] [place] [address], [facility] ? ? wholebloo ? Mean 85 fL 78-100 fL Final [facility] d Cell Diagnostic s: Volume [address] [place] [address], [place] ? ? wholebloo ? Mean 28.9 pg 25.0-35.0 Final [facility] d Cell pg Diagnostic s: Hemoglob [address] [place], [place] ? ? wholebloo ? Mean 34.0 g/dL 30.0-37.0 Final [facility] d Cell g/dL Diagnostic s: Hemoglob [address] [place] [address], [place] ? ? wholebloo ? Red 13.6 % 11.5-14.5 [facility] d Cell % Diagnostic s: Distribu [address] [place], Width [place] ? ? wholebloo ? Platele 280 150-450 [facility] d t Count 10^3/uL 10^3/uL Diagnos tics: [address] [place] [address], [place] ? ? wholebloo ? Mean 7.7 fL 6.8-10.4 [facility] d Platelet fL Diagnost ics: Volume [address] [place] [address], [place] ? ? wholebloo ? Neutrop 50.4 % 40.0-70.0 [facility] d hil % Diagnostic s: Percent [address] [place] [address], [place] ? ? wholebloo ? Absolut 3.0 1.5-6.6 Final [facility] d e 10^3/uL 10^3/uL Diagnost ics: Neutroph [address] [place] [address], [place] ? ? wholebloo ? Lymphoc 31.6 % 18.0-48.0 [facility] d yte % Diagnostic s: Percent [address] [place] [address], [place] ? ? wholebloo ? Absolut 1.9 0.8-4.8 Final [facility] e 10^3/uL 10^3/uL Diagnost ics: Lymphocy [address] [place], [place] ? ? wholebloo High Monocyt 12.5 % 2.0-11.0 Final [facility] d e % Diagnostic s: Percent [address] [place] [address], [place] ? ? wholebloo ? Absolut 0.70 0.00-0.90 [facility] d e 10^3/uL 10^3/uL Diagnost ics: Monocyte [address] [place], [place] ? ? wholebloo ? Eosinop 4.4 % 0.0-5.0 % [facility] d hil Diagnostic s: Percent [address] [place] [address], [place] ? ? wholebloo ? Absolut 0.3 0.0-0.5 [facility] e 10^3/uL 10^3/uL Diagnost ics: Eosinoph [address] [place] [address], [place] ? ? wholebloo ? Basophi 1.1 % 0.0-2.0 % [facility] d l Diagnostic s: Percent [address] [place] [address], [place] ? ? wholebloo ? Basophi 0.10 0.00-0.30 Final [facility] d l 10^3/uL 10^3/uL Diagnost ics: Absolute [address] [place], [facility] el 07/20/2017 Homocystein Serum High Homocys 11 umol/L <=10 Fin al [facility] e, Serum or teine, umol/L Diagn ostics: Plasma Total [address] [place] [address], [place] 07/20/2017 Urinalysis, urine ? Urrbc 0-3 /hpf 0-3/hpf [facility] Microscopic /hpf Diagn ostics: [address] [place] [address], [place] ? ? urine ? Urbacte trace negative [facility] seamus /hpf to trace Diagnost ics: /hpf [address] [place] [address], [place] [facility] Past Encounters None recorded. Social History None recorded. Vaccine List None recorded. Plan of Care Reminders Provider Appointments None ? ? recorded. Lab None ? ? recorded. Referral None ? ? recorded. Procedures None ? ? recorded. Surgeries None ? ? recorded. Imaging None ? ? recorded. Vitals 01/11/2018 10:00AM ESTABLISHED PATIENT 30 Height Weight BMI Blood Pressure 5 ft 9 in 254 lbs 16 oz 37.7 kg/m2 140/88 mm[Hg] 11/02/2017 09:00AM ESTABLISHED PATIENT 30 Height Weight BMI Blood Pressure 5 ft 9 in 250 lbs 16 oz 37.1 kg/m2 138/94 mm[Hg] 07/20/2017 10:00AM NEW PATIENT 60 Height Weight BMI Blood Pressure 5 ft 9 in 247 lbs 36.5 kg/m2 136/86 mm[Hg]
[2020-10-09 16:15] LABS: HGB 12.9 g/dL (13.5-17.5); MCH 28.6 pg (27.0-33.0); MCHC 33.1 % (32.0-36.0); MCV 86.5 fL (80-95); MPV 9.7 fL (8.0-11.0); Platelet Count 204 10^3/uL (130-400); RBC 4.51 10^6/uL (4.36-5.78); RDW 13.3 % (11.8-14.1); RDW-SD 41.5 fL; WBC 6.31 10^3/uL (4.4-10.8)
[2020-10-09 16:28] LABS: ALT 44 U/L (16-63); AST 18 U/L (15-37); Albumin 3.9 g/dL (3.4-5.0); Alkaline Phosphatase 74 U/L (46-116); Anion Gap 13.4 mmol/L (3-11); BUN 26 mg/dL (7-18); Bilirubin, Total 0.9 mg/dL (0.2-1.0); CO2 21.6 mmol/L (21.0-32.0); CREATININE 1.2 mg/dL (0.70-1.30); Calcium 8.8 mg/dL (8.5-10.1); Chloride 107 mmol/L (98-107); Glucose 114 mg/dL (74-106); Potassium 3.7 mmol/L (3.5-5.1); Sodium 142 mmol/L (136-145); TSH (W/Ref FT4) 0.89 uIU/mL (0.36-3.74); Total Protein 6.8 g/dL (6.4-8.2)
[2020-10-09 16:51] LABS: Hemoglobin A1C 6.4 % (<5.7)
== END 2020-10-09 09:39 | disposition home or self-care (01) ==
LOC: NCHCN 09:38
PROVIDERS: PCP Family Medicine; Visit Provider Family Medicine
DX: I10 Essential (primary) hypertension (principal); R73.03 Prediabetes; R63.5 Abnormal weight gain; K76.0 Fatty (change of) liver, not elsewhere classified
CPT/HCPCS: 80053; 85027; 83036; 84443

== ENCOUNTER 2020-11-05 11:55 | Outpatient (CLI) | payer BC, SELFPAY ==
[2020-11-05] MEDS: Albuterol HFA 18 GM 200 PUFF INH IH (14:41)
[2020-11-05] MEDS: Inhaler, Assist Device 1 EACH MC (14:41)
--- NOTE | 2020-11-06 08:26 | W.PFT ---
Date of service: 11/05/20 Time of Service: 01:12 Pulmonary Function Test Result Interpretation Spirometry: Borderline mild obstructive airways disease, may represent normal variant, no bronchodilator response Lung Volumes: No evidence of restriction Diffusion Capacity: Normal Airway Pressure: Normal Impression Overall likely, normal pulmonary function study slightly low FEV1/FVC might be related to extremely poor patient effort for the prebronchodilator spirometry. Clinical Correlation therefore is recommended.
== END 2020-11-05 11:56 | disposition home or self-care (01) ==
LOC: RT 11:56
PROVIDERS: PCP Family Medicine; Visit Provider Family Medicine
DX: R06.09 Other forms of dyspnea (principal)
CPT/HCPCS: 94060; 94726; 94729

== ENCOUNTER 2021-01-23 17:49 | Emergency (ER) | payer BC, SELFPAY ==
[2021-01-23 17:53] VITALS: BP 134/87; PULSE 68; RESP 18; TEMP 36.4; O2SAT 98
--- NOTE | 2021-01-23 18:32 | ED.GENADUL_ITS ---
Discharge Plan Disposition Patient Disposition: HOME Condition: Stable Discharge Details Clinical Impression: Laceration Primary Care Provider: Rosalba Ferguson ED Provider: Shelby Boone Home Meds and New Rx's Prescriptions: Continued ropinirole 1 mg tablet 1 mg PO HS Qty: 30 RF: 0 ascorbic acid (vitamin C) 1,000 mg tablet 1 gm PO DAILY RF: 0 Fish, Flax andBorage Oil(Prim) 400-400-200 mg capsule PO DAILY RF: 0 riboflavin (vitamin B2) 100 mg tablet 400 mg PO DAILY RF: 0 valsartan 40 mg tablet 80 mg PO DAILY RF: 0 rosuvastatin [Crestor] 10 mg tablet 20 mg PO DAILY RF: 0 topiramate 100 mg tablet 100 mg PO BID RF: 0 Aimovig Autoinjector 70 mg/mL auto-injector 70 mg subcut QMONTH Qty: 1 RF: 5 prochlorperazine maleate 5 mg tablet 5 mg PO Q8H PRN PRN (Reason: nausea or headache) Qty: 60 RF: 3 dextroamphetamine-amphetamine [Adderall XR] 20 MG capsule,extended release 24hr 20 mg PO DAILY RF: 0 vitamin B complex [B Complex-Vitamin B12] 1 EACH tablet 1 ea PO DAILY RF: 0 vitamin E 400 UNIT capsule 400 unit PO DAILY RF: 0 cholecalciferol (vitamin D3) 25 mcg (1,000 unit) tablet 2,000 unit PO DAILY RF: 0 multivitamin [Daily Multiple] Tablet 2 tab PO DAILY RF: 0 sumatriptan succinate 100 mg tablet See Rx Instructions PO .COMPLEX Qty: 12 RF: 3 venlafaxine 75 mg tablet 150 mg PO DAILY RF: 0 propranolol 20 mg tablet 60 mg PO BID RF: 0 ibuprofen 200 mg Capsule 200 mg PO QID PRNRF: 0 Discharge Instructions Instructions: Laceration (ED) Additional Instructions: keep wound clean and dry wash twice daily with warm soapy water, rinse completely pat dry gently Can apply thin layer of antibiotic ointment and dry dressing to protect. Okay to leave open at night air Monitor for signs of infection including redness drainage fever increased pain and report immediately. Your tetanus has been updated on this visit You can return here to the emergency department in 7 to 10 days for suture removal Referrals: Rosalba Ferguson MD [Primary Care Provider] - Discharge Data Discharge Date/Time-TO BE ENTERED AT DEPARTURE: 01/23/21 18:52 Medical Decision Making tetanus updated wound cleansed by nursing wound bed clean, no debris or foreign body wound approximates nicely HPI General Mode of arrival: ambulatory . Date/Time Provider Initiated Documentation: 01/23/21 17:55 . Limitations to Documentation: no limitations . Information obtained by: patient . HPI Narrative: Patient presents from urgent care for evaluation of a laceration on his right lower extremity lateral aspect approximately 3 cm long. He cut himself on a broken glass ceiling fan lamp. He has an abrasion approximately 3 cm long parallel to it. Pressure dressing is intact there is no bleeding on arrival. His tetanus was last updated in 2018 he has no numbness tingling or pain distally. He is reporting no pain at site of laceration Related Data Home Medications Medication Instructions Recorded Confirmed dextroamphetamine-amphetamine 20 mg PO DAILY tab-cap 03/21/18 01/23/21 [Adderall XR] vitamin B complex [B 1 ea PO DAILY 03/21/18 01/23/21 Complex-Vitamin B12] vitamin E 400 unit PO DAILY 03/21/18 01/23/21 ropinirole 1 mg tablet 1 mg PO HS #30 tab 05/02/18 01/23/21 ibuprofen 200 mg PO QID PRN 08/05/18 01/23/21 ascorbic acid (vitamin C) 1,000 mg 1 gm PO DAILY tab 07/20/19 01/23/21 tablet cholecalciferol (vitamin D3) 25 2,000 unit PO DAILY tab 07/20/19 01/23/21 mcg (1,000 unit) tablet fish oil 400 mg-flaxseed 400 cap PO DAILY cap 07/20/19 12/16/20 mg-prim,blk slasher hand,borag oils 200 mg capsule multivitamin 2 tab PO DAILY tab 07/20/19 01/23/21 propranolol 20 mg tablet 60 mg PO BID tab 07/20/19 01/23/21 rosuvastatin 10 mg tablet 20 mg PO DAILY tab 07/20/19 01/23/21 venlafaxine 75 mg tablet 150 mg PO DAILY tab 07/20/19 01/23/21 riboflavin (vitamin B2) 100 mg 400 mg PO DAILY tab 09/21/19 01/23/21 tablet erenumab-aooe 70 mg/mL 70 mg SUBCUT QMONTH #1 ea 12/16/20 01/23/21 subcutaneous auto-injector prochlorperazine maleate 5 mg 5 mg PO Q8H PRN PRN #60 tab 12/16/20 01/23/21 tablet topiramate 100 mg tablet 100 mg PO BID tab 12/16/20 01/23/21 valsartan 40 mg tablet 80 mg PO DAILY tab 12/16/20 01/23/21 sumatriptan succinate 100 mg tablet See Rx Instructions PO .COMPLEX 12/23/20 01/23/21 #12 tab Previous Rx's Medication Instructions Recorded ropinirole 1 mg tablet 1 mg PO HS #30 tab 05/02/18 erenumab-aooe 70 mg/mL 70 mg SUBCUT QMONTH #1 ea 12/16/20 subcutaneous auto-injector prochlorperazine maleate 5 mg 5 mg PO Q8H PRN PRN #60 tab 12/16/20 tablet sumatriptan succinate 100 mg tablet See Rx Instructions PO .COMPLEX 12/23/20 #12 tab Allergies Allergy/AdvReac Type Severity Reaction Status Date / Time chlorhexidine Allergy Intermediate rash Verified 01/23/21 17:56 General Stated Complaint: Laceration BREN: 4 Review of Systems Constitutional Constitutional: Denies fever(s) Musculoskeletal Musculoskeletal: Denies arthralgias, Denies joint swelling and Denies numbness Integumentary/Breasts Skin/Breast: Reports lesions (laceration) and Denies rash Neurologic Neurologic: Denies numbness [facility] Medical History ADHD BMI 37.0-37.9, adult Colon cancer s/p resection Depression with anxiety Erectile dysfunction Gout Headache, chronic migraine without aura Hemorrhoids History of hypertension Hyperlipidemia Hypertension Kidney stones Obstructive sleep apnea on CPAP Pre-diabetes Surgical History H/O umbilical hernia repair 1997 Leg fracture tib/fib fx ORIF , 2007 Repair of umbilical hernia S/P partial colectomy 2016 Family History Father Heart disease Stroke Colon cancer Hypertension Mother Heart disease Hypertension Kidney disease Social History Smoking/Tobacco Use Status: Never Smoking risk assessment performed?: Yes Alcohol Intake: current Alcohol Intake frequency: holidays/special occasions only Drug use: Never Substance use type: does not use Household members: spouse and children current occupation: TEACHES AT [employer], 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 Exam Skin Lesions: lesion noted (lateral right lower extremity) Rashes: no rashes Neuro General: patient alert, patient awake and patient oriented x3 Course Vital Signs Vital signs: Vital Signs Temperature 36.4 C L 01/23/21 17:53 Pulse 68 01/23/21 17:53 Respiratory Rate 18 01/23/21 17:53 Blood Pressure 134/87 01/23/21 17:53 Pulse Oximetry 98 01/23/21 17:53 Temperature 36.4 C L 01/23/21 17:53 Temperature Source Temporal Artery Scan 01/23/21 17:53 Pulse 68 01/23/21 17:53 Respiratory Rate 18 01/23/21 17:53 Respiratory Effort Non-Labored 01/23/21 17:58 Blood Pressure 134/87 01/23/21 17:53 Blood Pressure Position Sitting 01/23/21 17:53 Pulse Oximetry 98 01/23/21 17:53 Oxygen Delivery Method Room Air 01/23/21 17:53 Oxygen Flow Rate 0 01/23/21 17:53 Pain Level 0 01/23/21 18:21 Procedures Laceration right lower extremity: Site: lower extremity Side (If applicable): right Description: linear Depth: simple, single layer Local Anesthetic: Lidocaine 1% and with Epi Amount of anesthesia used (mL): 2 Pre-repair: irrigated extensively Skin layer closed with: nylon Size (cm): 4-0 Number of sutures: 7 Technique: simple, interrupted
== END 2021-01-23 18:52 | disposition home or self-care (01) ==
PROVIDERS: Emergency Provider Nurse Practitioner Acute Care; PCP Family Medicine
DX: S81.811A Laceration without foreign body, right lower leg, initial encounter (principal); W25.XXXA Contact with sharp glass, initial encounter
CPT/HCPCS: 12002; 90471

== ENCOUNTER 2021-02-04 09:10 | Emergency (ER) | payer BC, SELFPAY ==
[2021-02-04 09:14] VITALS: BP 144/90; PULSE 62; RESP 16; TEMP 36.7; O2SAT 97
--- NOTE | 2021-02-04 09:28 | ED.GENADUL_ITS ---
Discharge Plan Disposition Patient Disposition: HOME Condition: Stable Discharge Details Clinical Impression: Encounter for removal of sutures Primary Care Provider: Rosalba Ferguson ED Provider: Graciela Camp Home Meds and New Rx's Prescriptions: No Action ropinirole 1 mg tablet 1 mg PO HS Qty: 30 RF: 0 ascorbic acid (vitamin C) 1,000 mg tablet 1 gm PO DAILY RF: 0 Fish, Flax andBorage Oil(Prim) 400-400-200 mg capsule PO DAILY RF: 0 riboflavin (vitamin B2) 100 mg tablet 400 mg PO DAILY RF: 0 valsartan 40 mg tablet 80 mg PO DAILY RF: 0 rosuvastatin [Crestor] 10 mg tablet 20 mg PO DAILY RF: 0 topiramate 100 mg tablet 100 mg PO BID RF: 0 Aimovig Autoinjector 70 mg/mL auto-injector 70 mg subcut QMONTH Qty: 1 RF: 5 prochlorperazine maleate 5 mg tablet 5 mg PO Q8H PRN PRN (Reason: nausea or headache) Qty: 60 RF: 3 dextroamphetamine-amphetamine [Adderall XR] 20 MG capsule,extended release 24hr 20 mg PO DAILY RF: 0 vitamin B complex [B Complex-Vitamin B12] 1 EACH tablet 1 ea PO DAILY RF: 0 vitamin E 400 UNIT capsule 400 unit PO DAILY RF: 0 cholecalciferol (vitamin D3) 25 mcg (1,000 unit) tablet 2,000 unit PO DAILY RF: 0 multivitamin [Daily Multiple] Tablet 2 tab PO DAILY RF: 0 sumatriptan succinate 100 mg tablet See Rx Instructions PO .COMPLEX Qty: 12 RF: 3 venlafaxine 75 mg tablet 150 mg PO DAILY RF: 0 propranolol 20 mg tablet 60 mg PO BID RF: 0 ibuprofen 200 mg Capsule 200 mg PO QID PRNRF: 0 Discharge Instructions Instructions: Stitches Removal (ED) Additional Instructions: You may apply bacitracin if needed. Keep covered with a Band-Aid to decrease scar development. Return for any signs of infection including increased redness, swelling, red streaks or drainage. 7 sutures were removed today. Please take Tylenol or Ibuprofen with food every 4-6 hours as needed for pain and swelling. Referrals: Rosalba Ferguson MD [Primary Care Provider] - Discharge Data Discharge Date/Time-TO BE ENTERED AT DEPARTURE: 07/06/21 09:34 Medical Decision Making 60-year-old male presents to the ER for suture removal. Patient had 7 simple interrupted sutures placed to his right anterior rosado approximately 12 days ago after being cut by a piece of glass. He denies any problems at home. There is slight erythema surrounding laceration but no warmth, tenderness or signs of induration. No drainage. He denies fever or any complaints. 7 simple interrupted sutures removed wound was well approximated patient tolerated well no complications. HPI General Mode of arrival: ambulatory . Date/Time Provider Initiated Documentation: 02/04/21 09:20 . Limitations to Documentation: no limitations . Information obtained by: patient . HPI Narrative: 60-year-old male presents to the ER for suture removal. Patient had 7 simple interrupted sutures placed to his right anterior rosado approximately 12 days ago after being cut by a piece of glass. He denies any problems at home. There is slight erythema surrounding laceration but no warmth, tenderness or signs of induration. No drainage. He denies fever or any complaints. Related Data Home Medications Medication Instructions Recorded Confirmed dextroamphetamine-amphetamine 20 mg PO DAILY tab-cap 03/21/18 01/23/21 [Adderall XR] vitamin B complex [B 1 ea PO DAILY 03/21/18 01/23/21 Complex-Vitamin B12] vitamin E 400 unit PO DAILY 03/21/18 01/23/21 ropinirole 1 mg tablet 1 mg PO HS #30 tab 05/02/18 01/23/21 ibuprofen 200 mg PO QID PRN 08/05/18 01/23/21 ascorbic acid (vitamin C) 1,000 mg 1 gm PO DAILY tab 07/20/19 01/23/21 tablet cholecalciferol (vitamin D3) 25 2,000 unit PO DAILY tab 07/20/19 01/23/21 mcg (1,000 unit) tablet fish oil 400 mg-flaxseed 400 cap PO DAILY cap 07/20/19 12/16/20 mg-prim,blk online marketing director,borag oils 200 mg capsule multivitamin 2 tab PO DAILY tab 07/20/19 01/23/21 propranolol 20 mg tablet 60 mg PO BID tab 07/20/19 01/23/21 rosuvastatin 10 mg tablet 20 mg PO DAILY tab 07/20/19 01/23/21 venlafaxine 75 mg tablet 150 mg PO DAILY tab 07/20/19 01/23/21 riboflavin (vitamin B2) 100 mg 400 mg PO DAILY tab 09/21/19 01/23/21 tablet erenumab-aooe 70 mg/mL 70 mg SUBCUT QMONTH #1 ea 12/16/20 01/23/21 subcutaneous auto-injector prochlorperazine maleate 5 mg 5 mg PO Q8H PRN PRN #60 tab 12/16/20 01/23/21 tablet topiramate 100 mg tablet 100 mg PO BID tab 12/16/20 01/23/21 valsartan 40 mg tablet 80 mg PO DAILY tab 12/16/20 01/23/21 sumatriptan succinate 100 mg tablet See Rx Instructions PO .COMPLEX 12/23/20 01/23/21 #12 tab Previous Rx's Medication Instructions Recorded ropinirole 1 mg tablet 1 mg PO HS #30 tab 05/02/18 erenumab-aooe 70 mg/mL 70 mg SUBCUT QMONTH #1 ea 12/16/20 subcutaneous auto-injector prochlorperazine maleate 5 mg 5 mg PO Q8H PRN PRN #60 tab 12/16/20 tablet sumatriptan succinate 100 mg tablet See Rx Instructions PO .COMPLEX 12/23/20 #12 tab Allergies Allergy/AdvReac Type Severity Reaction Status Date / Time chlorhexidine Allergy Intermediate rash Verified 02/04/21 09:18 General Stated Complaint: SutureRem BREN: 4 Review of Systems All systems reviewed & are unremarkable except as noted in HPI and below Integumentary/Breasts Skin/Breast: Reports wounds (Here for suture removal, 7 sutures placed 12 days ago) [facility] Medical History ADHD BMI 37.0-37.9, adult Colon cancer s/p resection Depression with anxiety Erectile dysfunction Gout Headache, chronic migraine without aura Hemorrhoids History of hypertension Hyperlipidemia Hypertension Kidney stones Obstructive sleep apnea on CPAP Pre-diabetes Surgical History H/O umbilical hernia repair 1997 Leg fracture tib/fib fx ORIF , 2007 Repair of umbilical hernia S/P partial colectomy 2016 Family History Father Heart disease Stroke Colon cancer Hypertension Mother Heart disease Hypertension Kidney disease Social History Smoking/Tobacco Use Status: Never Smoking risk assessment performed?: Yes Alcohol Intake: current Alcohol Intake frequency: holidays/special occasions only Drug use: Never Substance use type: does not use Household members: spouse and children current occupation: TEACHES AT [employer], 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 Exam Extrem Right lower extremity: lower leg (Well approximated wound noted with 7 simple interrupted sutures no drainage) Details: other (Slight surrounding erythema no induration nontender with palpation) Course Vital Signs Vital signs: Vital Signs Temperature 36.7 C 02/04/21 09:14 Pulse 62 02/04/21 09:14 Respiratory Rate 16 02/04/21 09:14 Blood Pressure 144/90 H 02/04/21 09:14 Pulse Oximetry 97 02/04/21 09:14 Temperature 36.7 C 02/04/21 09:14 Temperature Source Skin 02/04/21 09:14 Pulse 62 02/04/21 09:14 Respiratory Rate 16 02/04/21 09:14 Respiratory Effort Non-Labored 02/04/21 09:17 Blood Pressure 144/90 H 02/04/21 09:14 Blood Pressure Position Sitting 02/04/21 09:14 Pulse Oximetry 97 02/04/21 09:14 Pain Level 0 02/04/21 09:14 Procedures Other Description: Suture removal 7 simple interrupted sutures removed.
== END 2021-02-04 09:34 | disposition home or self-care (01) ==
LOC: ER 09:34
PROVIDERS: Emergency Provider Registered Nurse Emergency; PCP Family Medicine
DX: S81.811D Laceration without foreign body, right lower leg, subsequent encounter (principal); W25.XXXD Contact with sharp glass, subsequent encounter

== ENCOUNTER 2021-03-28 06:35 | Day surgery (SDC) | payer BC, SELFPAY ==
[2021-03-28] MEDS: Tropicam./Phenyleph. (1/2.5%) 5 ML BTL OS ×3 (07:00→07:12)
--- NOTE | 2021-03-28 07:01 | W.ANESPRE ---
General Info Date of Service Date Performed: 03/28/21 Height: 5 ft 10 in Weight: 117.934 kg Body Mass Index (BMI): 37.3 Surgical Procedure: Operation Date: 03/28/21 07:40 Proposed Procedures Side Surgeon p Cataract Extraction with IOL Implant Kaiser Lilly MD Meds Allergies and Home Medications Allergies Allergy/AdvReac Type Severity Reaction Status Date / Time chlorhexidine Allergy Intermediate rash Verified 03/28/21 06:53 Home Medication Medication Instructions Recorded dextroamphetamine-amphetamine 20 mg PO DAILY tab-cap 03/21/18 [Adderall XR] vitamin B complex [B 1 ea PO DAILY 03/21/18 Complex-Vitamin B12] vitamin E 400 unit PO DAILY 03/21/18 ropinirole 1 mg tablet 1 mg PO HS #30 tab 05/02/18 ibuprofen 200 mg PO QID PRN 08/05/18 ascorbic acid (vitamin C) 1,000 mg 1 gm PO DAILY tab 07/20/19 tablet cholecalciferol (vitamin D3) 25 2,000 unit PO DAILY tab 07/20/19 mcg (1,000 unit) tablet fish oil 400 mg-flaxseed 400 1 cap PO DAILY cap 07/20/19 mg-prim,blk womens volleyball coach,borag oils 200 mg capsule multivitamin 2 tab PO DAILY tab 07/20/19 propranolol 20 mg tablet 60 mg PO BID tab 07/20/19 rosuvastatin 10 mg tablet 20 mg PO DAILY tab 07/20/19 venlafaxine 75 mg tablet 150 mg PO DAILY tab 07/20/19 riboflavin (vitamin B2) 100 mg 400 mg PO DAILY tab 09/21/19 tablet erenumab-aooe 70 mg/mL 70 mg SUBCUT QMONTH #1 ea 12/16/20 subcutaneous auto-injector prochlorperazine maleate 5 mg 5 mg PO Q8H PRN PRN #60 tab 12/16/20 tablet topiramate 100 mg tablet 100 mg PO BID tab 12/16/20 valsartan 40 mg tablet 80 mg PO DAILY tab 12/16/20 sumatriptan succinate 100 mg tablet See Rx Instructions PO .COMPLEX 12/23/20 #12 tab aspirin 81 mg tablet,delayed 81 mg PO DAILY 03/07/21 release budesonide-formoterol HFA 160 2 puff INHALATION BID 03/07/21 mcg-4.5 mcg/actuation aerosol inhaler cholestyramine (with sugar) 4 gram 4 pwd PO DAILY 03/07/21 oral powder magnesium oxide 400 mg PO DAILY 03/07/21 vitamin E (dl, acetate) 180 mg 45 mg PO DAILY 03/07/21 (400 unit) capsule Saccharomyces raz 250 mg 250 mg PO BID 03/25/21 capsule Current Visit Medications: Current Medications Generic Name Dose Route Start Last Admin Trade Name Freq PRN Reason Stop Dose Admin Acetaminophen 1,000 mg 03/28/21 06:00 Acetaminophen 500 Mg Tab PO Q4H PRN PRN Miscellaneous Medication 0 ml 03/28/21 06:00 Prednisolone 1%, Moxifloxacin 0.5%, Nepafenac 0.1% 5ml Btl OS DIRECTED [facility] Miscellaneous Medication 0 ml 03/28/21 06:00 Tropicam./Phenyleph. (1/2.5%) 5 Ml Btl OS DIRECTED [facility] Tetracaine HCl 0 ml 03/28/21 06:00 Tetracaine 0.5% 4 Ml Btl OS DIRECTED [facility] Active Problems Active Problems: Problem Status Onset Code Laceration Encounter for removal of sutures Z48.02 Cyst of neck Carpal tunnel syndrome on both sides G56.03 Snoring R06.83 Dyspnea on exertion R06.00 Migraines G43.909 Restless leg G25.81 Fatty infiltration of liver K76.0 Erectile dysfunction N52.9 Colon cancer C18.9 ADHD F90.9 Depression with anxiety F41.8 BMI 37.0-37.9, adult Z68.37 Pre-diabetes R73.03 Gout M10.9 Obstructive sleep apnea on CPAP G47.33, Z99.89 Headache, chronic migraine without aura G43.709 Hyperlipidemia E78.5 Hypertension I10 Hemorrhoids Medical History Medical History ADHD BMI 37.0-37.9, adult Carpal tunnel syndrome on both sides Colon cancer s/p resection Depression with anxiety Dyspnea on exertion Erectile dysfunction Fatty infiltration of liver Gout Headache, chronic migraine without aura Hemorrhoids History of hypertension History of nephrolithiasis Hyperlipidemia Hypertension Kidney stones Migraines Obstructive sleep apnea on CPAP Pre-diabetes Restless leg Snoring Surgical History Surgical History (Reviewed 03/28/21 @ 06:53 by Christy Haskins H/O umbilical hernia repair 1997 Hx of colonoscopy 03/26/21 Leg fracture tib/fib fx ORIF , 2008 Repair of umbilical hernia S/P partial colectomy 2016 Tobacco Smoking/Tobacco Use Status: Never Alcohol Alcohol Intake: current Alcohol intake frequency: holidays/special occasions only Substance Use Substance use: Never Substance use type: does not use Vital Signs and Lab Results Lab Results Blood Type / Crossmatch: No Data to Display Complete Blood Count: No Data to Display Complete Metabolic Panel: No Data to Display Liver Function Panel: No Data to Display Coagulation Panel: No Data to Display Cardiac Panel: No Data to Display Arterial Blood Gas: No Data to Display Venous Blood Gas: No Data to Display Pancreas Panel: No Data to Display Thyroid Panel: No Data to Display Infectious Disease: No Data to Display Blood Cultures: No Data to Display Toxicology Panel: No Data to Display Imaging and Studies Imaging and Studies Stress Test Summary: Date of Exam: 03/02/18 Impressions: - Normal perfusion by [id number] Sestamibi Imaging. Echocardiogram Summary: Date of study: 03/09/2018 Transthoracic Echocardiography M-mode, complete 2D, complete spectral Doppler, and color Doppler *STUDY CONCLUSIONS* Summary: 1. Left ventricle: The cavity size was mildly dilated. Wall thickness was increased in a pattern of mild LVH. Systolic function was normal. The estimated ejection fraction was 55-60%. Wall motion was normal; there were no regional wall motion abnormalities. 2. Aortic valve: Trileaflet; normal thickness leaflets. There was mild regurgitation. 3. Aortic root: The aortic root was mildly dilated. 4.0 cm. 4. Mitral valve: There was mild regurgitation. 5. Left atrium: The atrium was mildly dilated. 6. Right ventricle: The cavity size was mildly dilated. Wall thickness was normal. Systolic function was normal. 7. Right atrium: The atrium was moderately dilated. 8. Pulmonary arteries: Pulmonary systolic pressure was within the normal range, in the range of 30mm Hg to 35mm Hg. Pulmonary Function Summary: Date of service: 11/05/20 Pulmonary Function Test Result Spirometry: Borderline mild obstructive airways disease, may represent normal variant, no bronchodilator response Lung Volumes: No evidence of restriction Diffusion Capacity: Normal Airway Pressure: Normal Impression Overall likely, normal pulmonary function study slightly low FEV1/FVC might be related to extremely poor patient effort for the prebronchodilator spirometry. Clinical Correlation therefore is recommended. Anesthesia Assessment and Plan Anesthesia History Personal History: No History of Anesthesia Complications Family History: No Family History of Anesthesia Complications Exercise Tolerance Exercise Tolerance: Metabolic Equivalents>4 Pertinent Negatives Pertinent Negatives: No Symptoms of GERD Cardiac & Pulmonary Exam Cardiac Exam: Normal S1/S2 Heart Sounds Pulmonary Exam: Clear Bilateral Breath Sounds Airway Exam Known Difficult Airway: No Mallampati Class: 2 Mouth Opening: Normal (> 3cm) Thyromental Distance: Greater than 3 cm Neck Range of Motion: Full ROM Neck Circumference: Normal Teeth Condition: Normal Dentition ASA Classification ASA Score: ASA 2 Emergency Case?: No NPO Status NPO Status: NPO Clears >2 hours, Solids >8 hours Anesthesia Plan Resuscitation Status: Full Code Anesthesia Technique: MAC Anesthesia Airway Planned: Natural Airway Monitors Used: Standard Monitors
[2021-03-28 07:02] VITALS: BP 135/80; PULSE 57; RESP 20; TEMP 36.5; O2SAT 99
[2021-03-28 07:20] VITALS: BMI 37.3
[2021-03-28] MEDS: Lidocaine 2% Jelly 6 ML SYR (07:27)
[2021-03-28] MEDS: Tetracaine 0.5% 4 ML BTL OS (07:27)
[2021-03-28] MEDS: Povidone-Iodine Ophth 30 ML BTL (07:27)
[2021-03-28] MEDS: Lidocaine 1% Pres-Free 5 ML VIAL (07:31)
[2021-03-28] MEDS: Duovisc Viscoelastic System EACH 1 EACH (07:31)
[2021-03-28] MEDS: Balanced Salt Soln.-PLUS 500 ML BAG (07:31)
[2021-03-28] MEDS: Trypan Blue 0.06% 0.5 ML SYR (07:52)
[2021-03-28 08:20] VITALS: BP 136/86; PULSE 58; RESP 18; TEMP 36.1; O2SAT 99
--- NOTE | 2021-03-28 08:24 | W.PM.DSUDISC ---
Discharge Plan Disposition Patient Disposition: HOME Condition: Good Discharge Details Attending Provider: Kaiser Lilly Primary Care Provider: Rosalba Ferguson Home Meds and New Rx's Prescriptions: No Action ropinirole 1 mg tablet 1 mg PO HS Qty: 30 RF: 0 Saccharomyces boulardii [Daily Probiotic (S. boulardii)] 250 mg capsule 250 mg PO BID RF: 0 ascorbic acid (vitamin C) 1,000 mg tablet 1 gm PO DAILY RF: 0 Fish, Flax andBorage Oil(Prim) 400-400-200 mg capsule 1 cap PO DAILY RF: 0 riboflavin (vitamin B2) 100 mg tablet 400 mg PO DAILY RF: 0 valsartan 40 mg tablet 80 mg PO DAILY RF: 0 rosuvastatin [Crestor] 10 mg tablet 20 mg PO DAILY RF: 0 topiramate 100 mg tablet 100 mg PO BID RF: 0 Aimovig Autoinjector 70 mg/mL auto-injector 70 mg subcut QMONTH Qty: 1 RF: 5 prochlorperazine maleate 5 mg tablet 5 mg PO Q8H PRN PRN (Reason: nausea or headache) Qty: 60 RF: 3 dextroamphetamine-amphetamine [Adderall XR] 20 MG capsule,extended release 24hr 20 mg PO DAILY RF: 0 vitamin B complex [B Complex-Vitamin B12] 1 EACH tablet 1 ea PO DAILY RF: 0 vitamin E 400 UNIT capsule 400 unit PO DAILY RF: 0 cholecalciferol (vitamin D3) 25 mcg (1,000 unit) tablet 2,000 unit PO DAILY RF: 0 multivitamin [Daily Multiple] Tablet 2 tab PO DAILY RF: 0 sumatriptan succinate 100 mg tablet See Rx Instructions PO .COMPLEX Qty: 12 RF: 3 aspirin [Adult Aspirin Regimen] 81 mg tablet,delayed release (DR/EC) 81 mg PO DAILY RF: 0 magnesium oxide 400 mg magnesium capsule 400 mg PO DAILY RF: 0 cholestyramine (with sugar) 4 gram powder 4 pwd PO DAILY RF: 0 budesonide-formoterol [Symbicort] 160-4.5 mcg/actuation HFA aerosol inhaler 2 puff inhalation BID RF: 0 vitamin E (dl, acetate) 400 unit capsule 45 mg PO DAILY RF: 0 venlafaxine 75 mg tablet 150 mg PO DAILY RF: 0 propranolol 20 mg tablet 60 mg PO BID RF: 0 ibuprofen 200 mg Capsule 200 mg PO QID PRNRF: 0 Discharge Instructions Stand Alone Forms: Post-op Topical Cataract, Natasha Amado (DSU) Discharge Orders Discharge Orders: Discharge Order (Routine); Ordered 03/28/21 Ordered By: Kaiser Lilly DS: Diagnosis Discharge Diagnosis (1) Cortical cataract of left eye: Status: Resolved (2) High myopia, left eye: Status: Chronic (3) Nuclear sclerotic cataract of left eye: Status: Resolved (4) Posterior subcapsular age-related cataract of left eye: Status: Resolved
--- NOTE | 2021-03-28 08:26 | W.PM.OP ---
Date of service: 03/28/21 Time of Service: 08:26 Operative Note Operative Note DATE OF PROCEDURE: 03/28/21 PRE-OP DIAGNOSIS: Dense nuclear/cortical/posterior subcapsular cataract, left eye High myopia with refractive amblyopia, left eye Poor red reflex, left eye secondary to dense cataract POST-OP DIAGNOSIS: same PROCEDURE: Cataract extraction using phacoemulsification with intraocular lens implant, left eye, using capsular staining with Vision Blue SURGEON: Kaiser Lilly ANESTHESIA TYPE: Local By Surgeon and MAC Refer to Anesthesia Record COMPLICATIONS: None Patient was transported to: same day Patient's condition: stable Implants: Darian and Darian / [employer] Tecnis [id number] Indications: Progressive decreased vision due to cataract, left eye, with poor red reflex Procedure Description: CATARACT SURGERY OPERATIVE REPORT PREOPERATIVE DIAGNOSIS: 1. Dense nuclear/cortical/posterior subcapsular cataract, left eye 2. Poor red reflex secondary to #1 3. High myopia with refractive amblyopia, left eye POSTOPERATIVE DIAGNOSIS: Same OPERATION: 1. Cataract extraction using phacoemulsification with posterior chamber intraocular lens implant, left eye. 2. Capsular staining with Vision Blue IOL: IOL Filament Coil Winder/Model: Darian & Darian / MAREK Tecnis [id number] IOL Power: + 8.0 diopters IOL Serial Number: [id number] Optic Diameter: 6.0 mm Haptic/Overall Diameter: 13.0 mm PHACO INFO: [place] [employer] Vision System with OZil and Active Fluidics Cumulative Dispersed Energy (CDE): 19.78 seconds SURGEON: Kaiser Lilly MD, AMAYA ANESTHESIA: Monitored A [facility] (MAC), with local sub-tenon's anesthetic infiltration COMPLICATIONS: None SPECIMENS: None INDICATIONS FOR PROCEDURE: The patient is a 60-year-old gentleman with history of high myopia, left eye worse than right, with refractive amblyopia of the left eye. He has developed a dense nuclear/cortical/posterior subcapsular cataract of the left eye. The option of cataract surgery was offered to the patient and he wished to proceed. PROCEDURE: The correct surgical eye was identified and marked as the left eye and the pupil was dilated in the preoperative area using mydriatics and cycloplegics. The dilated pupil size was 7.0 mm. Oral sedation was administered in the form of an Imprimis MKO Melt (midazolam 3mg/ketamine 25mg/ondansetron 2mg). The patient was brought to the operating room where cardiopulmonary monitoring was instituted and surgical time-out was performed, confirming the correct operative eye and IOL power. Topical anesthesia was administered and ophthalmic povidone-iodine 5% was instilled into the conjunctival fornices. Lidocaine gel was applied to the cornea and the rafael-ocular area was prepped with Betadine 10% solution and draped in the usual sterile fashion for intraocular surgery, including an aperture drape. A Tegaderm transparent film dressing was cut in half and used to cover the lashes and lid margins. Care was taken to sequester the lashes and lid margins under the Tegaderm dressing. A lid speculum was placed between the lids of the operative eye and the Carl-Keron operating microscope was maneuvered into position. Arjun scissors were then used to make a conjunctival buttonhole approximately 6mm posterior to the limbus in the inferonasal quadrant. Blunt dissection was carried out to expose bare sclera, and a blunt-tipped sub-tenon?s anesthesia cannula was introduced and passed posteriorly along the globe where non-preserved plain lidocaine was injected into posterior sub-Tenon?s space. A conjunctival peritomy was made at the 2 o'clock position, and hemostasis was obtained using cautery. A crescent blade was used to make a half-thickness scleral groove approximately 1.5 mm posterior to the limbus, and then to create a scleral corneal tunnel extending approximately 1.5 mm into clear cornea. A side-port knife was then used to make a paracentesis incision at the 12 o'clock position.. Air was then injected into the anterior chamber, followed by Vision Blue, which was painted over the anterior capsule and then irrigated out using BSS. The anterior chamber was filled with Viscoat viscoelastic. A 2.4mm keratome knife was used to enter the anterior chamber through the scleral corneal tunnel. A flap was raised on the anterior capsule and capsulorhexis forceps were used to complete a continuous curvilinear capsulorhexis of 4.8 mm. The anterior chamber was noted to be quite deep with a very thin anterior capsule, and very low scleral rigidity. Balanced salt solution was then used to perform cortical cleaving hydrodissection and nuclear hydrodelineation until the lens could be freely rotated within the capsular bag. The lens nucleus was then disassembled and removed within the capsular bag and iris plane using phacoemulsification. An attempt was made to prolapse the cataract out of the bag, as the anterior chamber was so deep, but this was unsuccessful due to a slightly small capsulorhexis. A second paracentesis was made at the 11 o'clock position, as the original side-port was too close to the sacral incision. Nuclear splitters were used to aid in cracking the nucleus into quadrants, due to the hyperdeep anterior chambercreating challenges with manipulating the lens within the bag. Residual cortical material was removed using the 45-degree angled silicone I/A tip with 0.3mm port. The posterior capsule was carefully polished to remove as much residual lens epithelial cells as safely possible. There was some residual posterior subcapsular plaque inferiorly which could not be safely removed despite extensive polishing. The capsular bag was then inflated and the anterior chamber deepened with viscoelastic. The lens implant described above was inserted into the capsular bag using the MAREK [place] Injector. A Kuglen hook was used to dial the IOL into position. Residual viscoelastic was then removed first from posterior to the IOL, then from the anterior chamber using the I/A handpiece. The lens implant was noted to center nicely within the capsular bag. The incisions were stromally hydrated, and the anterior chamber was reformed using BSS. Then 0.5cc of moxifloxacin 1.0mg/ml were injected into the capsular bag and anterior chamber. The incisions were checked with a Weck spear and found to be secure. Several drops of ophthalmic povidone-iodine 5% were then applied to the eye followed by two drops of Imprimis combination prednisolone/moxifloxacin/nepafenac solution. The drapes were removed and a clear plastic protective eye shield was placed over the eye. The patient was then returned to Same Day Surgery in stable condition.
[2021-03-28 08:40] VITALS: BP 136/86; PULSE 51; RESP 18; TEMP 36; O2SAT 98
--- NOTE | 2021-03-28 08:58 | W.ANESPOSTOP ---
Postoperative Evaluation Date, Time and Location Date Performed: 03/28/21 Time Performed: 08:58 Patient Location: Day Surgery Unit Vital Signs Most Recent Imported Vital Signs: Most Recent Vital Signs Temp Pulse Resp BP Pulse Ox 36 C L 51 L 18 136/86 98 03/28/21 08:40 03/28/21 08:40 03/28/21 08:40 03/28/21 08:40 03/28/21 08:40 Pain Score Most Recent Pain Score: Most Recent Pain Score Pain Level 0 03/28/21 08:40 Assessment Mental Status: Awake (Alert & Oriented to Patient Baseline) Airway and Respiratory Function: Patent airway with normal (patient baseline) respiratory exam Cardiovascular Function: Hemodynamically Stable Hydration Status: Adequately Hydrated Nausea & Vomiting: No Nausea or Vomiting Pain: Pt. Denies Any Pain Peripheral Nerve Block: Patient did not receive a nerve block
== END 2021-03-28 08:50 | disposition home or self-care (01) ==
PROVIDERS: PCP Family Medicine; Visit Provider Ophthalmology
PROC: (CPT 66984; principal; 2021-03-28 07:30)
DX: H25.042 Posterior subcapsular polar age-related cataract, left eye (principal)
CPT/HCPCS: 66984; V2632

== ENCOUNTER 2021-04-09 03:33 | Outpatient (CLI) | payer BC, SELFPAY ==
[2021-04-09 12:56] LABS: Source Nasal/Nares
[2021-04-09 15:22] LABS: COVID-19 PCR Negative (Negative)
== END 2021-04-09 03:34 | disposition home or self-care (01) ==
LOC: LBO 03:34
PROVIDERS: PCP Family Medicine; Visit Provider Ophthalmology
DX: Z20.822 Contact with and (suspected) exposure to COVID-19 (principal); Z01.818 Encounter for other preprocedural examination
CPT/HCPCS: 87635

== ENCOUNTER 2021-04-11 11:16 | Day surgery (SDC) | payer BC, SELFPAY ==
[2021-04-11] MEDS: Tropicam./Phenyleph. (1/2.5%) 5 ML BTL OD ×3 (11:53→12:04)
[2021-04-11 11:55] VITALS: BP 145/83; PULSE 58; RESP 16; TEMP 36.2; O2SAT 98
--- NOTE | 2021-04-11 12:20 | W.ANESPRE ---
General Info Date of Service Date Performed: 04/11/21 Height: 5 ft 10 in Weight: 118 kg Body Mass Index (BMI): 37.3 Surgical Procedure: Operation Date: 04/11/21 14:40 Proposed Procedures Side Surgeon p Cataract Extraction with IOL Implant Right Kasier Lilly MD Actual Procedures Side Surgeon p Cataract Extraction with IOL Implant Right Kaiser Lilly MD Meds Allergies and Home Medications Allergies Allergy/AdvReac Type Severity Reaction Status Date / Time chlorhexidine Allergy Intermediate rash Verified 04/11/21 11:44 Home Medication Medication Instructions Recorded dextroamphetamine-amphetamine 20 mg PO DAILY tab-cap 03/21/18 [Adderall XR] vitamin B complex [B 1 ea PO DAILY 03/21/18 Complex-Vitamin B12] vitamin E 400 unit PO DAILY 03/21/18 ropinirole 1 mg tablet 1 mg PO HS #30 tab 05/02/18 ibuprofen 200 mg PO QID PRN 08/05/18 ascorbic acid (vitamin C) 1,000 mg 1 gm PO DAILY tab 07/20/19 tablet cholecalciferol (vitamin D3) 25 2,000 unit PO DAILY tab 07/20/19 mcg (1,000 unit) tablet fish oil 400 mg-flaxseed 400 1 cap PO DAILY cap 07/20/19 mg-prim,blk oil transport driver,borag oils 200 mg capsule multivitamin 2 tab PO DAILY tab 07/20/19 propranolol 20 mg tablet 60 mg PO BID tab 07/20/19 rosuvastatin 10 mg tablet 20 mg PO DAILY tab 07/20/19 venlafaxine 75 mg tablet 150 mg PO DAILY tab 07/20/19 riboflavin (vitamin B2) 100 mg 400 mg PO DAILY tab 09/21/19 tablet erenumab-aooe 70 mg/mL 70 mg SUBCUT QMONTH #1 ea 12/16/20 subcutaneous auto-injector prochlorperazine maleate 5 mg 5 mg PO Q8H PRN PRN #60 tab 12/16/20 tablet topiramate 100 mg tablet 100 mg PO BID tab 12/16/20 valsartan 40 mg tablet 80 mg PO DAILY tab 12/16/20 sumatriptan succinate 100 mg tablet See Rx Instructions PO .COMPLEX 12/23/20 #12 tab aspirin 81 mg tablet,delayed 81 mg PO DAILY 03/07/21 release budesonide-formoterol HFA 160 2 puff INHALATION BID 03/07/21 mcg-4.5 mcg/actuation aerosol inhaler cholestyramine (with sugar) 4 gram 4 pwd PO DAILY 03/07/21 oral powder magnesium oxide 400 mg PO DAILY 03/07/21 vitamin E (dl, acetate) 180 mg 45 mg PO DAILY 03/07/21 (400 unit) capsule Saccharomyces kathleenulardii 250 mg 250 mg PO BID 03/25/21 capsule Current Visit Medications: Current Medications Generic Name Dose Route Start Last Admin Trade Name Freq PRN Reason Stop Dose Admin Acetaminophen 1,000 mg 04/11/21 06:00 Acetaminophen 500 Mg Tab PO Q4H PRN PRN Miscellaneous Medication 0 ml 04/11/21 06:00 Prednisolone 1%, Moxifloxacin 0.5%, Nepafenac 0.1% 5ml Btl OD [facility] Miscellaneous Medication 0 ml 04/11/21 06:00 04/11/21 12:04 Tropicam./Phenyleph. (1/2.5%) 5 Ml Btl OD 1 drp DIRECTED [facility] Administration Tetracaine HCl 0 ml 04/11/21 06:00 Tetracaine 0.5% 4 Ml Btl OD DIRECTED [facility] PFSH Active Problems Active Problems: Problem Status Onset Code Laceration Encounter for removal of sutures Z48.02 Cyst of neck Cortical cataract of left eye H26.9 High myopia, left eye H52.12 Nuclear sclerotic cataract of left eye H25.12 Posterior subcapsular age-related cataract of left eye H25.042 Nuclear sclerotic cataract of right eye H25.11 Cortical cataract of right eye H26.9 Carpal tunnel syndrome on both sides G56.03 Snoring R06.83 Dyspnea on exertion R06.00 Migraines G43.909 Restless leg G25.81 Fatty infiltration of liver K76.0 Erectile dysfunction N52.9 Colon cancer C18.9 ADHD F90.9 Depression with anxiety F41.8 BMI 37.0-37.9, adult Z68.37 Pre-diabetes R73.03 Gout M10.9 Obstructive sleep apnea on CPAP G47.33, Z99.89 Headache, chronic migraine without aura G43.709 Hyperlipidemia E78.5 Hypertension I10 Hemorrhoids Medical History Medical History ADHD BMI 37.0-37.9, adult Carpal tunnel syndrome on both sides Colon cancer s/p resection Depression with anxiety Dyspnea on exertion Erectile dysfunction Fatty infiltration of liver Gout Headache, chronic migraine without aura Hemorrhoids History of hypertension History of nephrolithiasis Hyperlipidemia Hypertension Kidney stones Migraines Obstructive sleep apnea on CPAP Pre-diabetes Restless leg Snoring Surgical History Surgical History (Updated 04/11/21 @ 11:44 by Christy Marin) H/O umbilical hernia repair 1997 Hx of cataract surgery Hx of colonoscopy 03/26/21 Leg fracture tib/fib fx ORIF , 2007 Repair of umbilical hernia S/P partial colectomy 2016 Tobacco Smoking/Tobacco Use Status: Never Alcohol Alcohol Intake: current Alcohol intake frequency: holidays/special occasions only Substance Use Substance use: Never Substance use type: does not use Vital Signs and Lab Results Vital Signs Most Recent Vital Signs in EMR: Most Recent Vital Signs Temp Pulse Resp BP Pulse Ox 36.2 C L 58 L 16 145/83 H 98 04/11/21 11:55 04/11/21 11:55 04/11/21 11:55 04/11/21 11:55 04/11/21 11:55 Lab Results Blood Type / Crossmatch: No Data to Display Complete Blood Count: No Data to Display Complete Metabolic Panel: No Data to Display Liver Function Panel: No Data to Display Coagulation Panel: No Data to Display Cardiac Panel: No Data to Display Arterial Blood Gas: No Data to Display Venous Blood Gas: No Data to Display Pancreas Panel: No Data to Display Thyroid Panel: No Data to Display Infectious Disease: Coronavirus (COVID-19)(PCR) Negative (Negative) 04/09/21 10:34 04/09/21 Coronavirus 2019 Source Nasal/Nares 04/09/21 10:34 04/09/21 Blood Cultures: No Data to Display Toxicology Panel: No Data to Display Imaging and Studies Imaging and Studies Stress Test Summary: Date of Exam: 03/02/18 Impressions: - Normal perfusion by [id number] Sestamibi Imaging. Echocardiogram Summary: Date of study: 03/09/2018 Transthoracic Echocardiography M-mode, complete 2D, complete spectral Doppler, and color Doppler *STUDY CONCLUSIONS* Summary: 1. Left ventricle: The cavity size was mildly dilated. Wall thickness was increased in a pattern of mild LVH. Systolic function was normal. The estimated ejection fraction was 55-60%. Wall motion was normal; there were no regional wall motion abnormalities. 2. Aortic valve: Trileaflet; normal thickness leaflets. There was mild regurgitation. 3. Aortic root: The aortic root was mildly dilated. 4.0 cm. 4. Mitral valve: There was mild regurgitation. 5. Left atrium: The atrium was mildly dilated. 6. Right ventricle: The cavity size was mildly dilated. Wall thickness was normal. Systolic function was normal. 7. Right atrium: The atrium was moderately dilated. 8. Pulmonary arteries: Pulmonary systolic pressure was within the normal range, in the range of 30mm Hg to 35mm Hg. Pulmonary Function Summary: Date of service: 11/05/20 Pulmonary Function Test Result Spirometry: Borderline mild obstructive airways disease, may represent normal variant, no bronchodilator response Lung Volumes: No evidence of restriction Diffusion Capacity: Normal Airway Pressure: Normal Impression Overall likely, normal pulmonary function study slightly low FEV1/FVC might be related to extremely poor patient effort for the prebronchodilator spirometry. Clinical Correlation therefore is recommended. Anesthesia Assessment and Plan Anesthesia History Personal History: No History of Anesthesia Complications Family History: No Family History of Anesthesia Complications Exercise Tolerance Exercise Tolerance: Metabolic Equivalents>4 Pertinent Negatives Pertinent Negatives: No Symptoms of GERD Cardiac & Pulmonary Exam Cardiac Exam: Normal S1/S2 Heart Sounds Pulmonary Exam: Clear Bilateral Breath Sounds Airway Exam Known Difficult Airway: No Mallampati Class: 2 Mouth Opening: Normal (> 3cm) Thyromental Distance: Greater than 3 cm Neck Range of Motion: Full ROM Neck Circumference: Normal Teeth Condition: Normal Dentition ASA Classification ASA Score: ASA 3 Emergency Case?: No NPO Status NPO Status: NPO Clears >2 hours, Solids >8 hours Anesthesia Plan Resuscitation Status: Full Code Anesthesia Technique: MAC Anesthesia Airway Planned: Natural Airway Monitors Used: Standard Monitors
[2021-04-11 12:21] VITALS: BMI 37.3
[2021-04-11] MEDS: Trypan Blue 0.06% 0.5 ML SYR (12:27)
[2021-04-11] MEDS: Tetracaine 0.5% 4 ML BTL OD (12:28)
[2021-04-11] MEDS: Lidocaine 1% Pres-Free 5 ML VIAL (12:29)
[2021-04-11] MEDS: Balanced Salt Soln.-PLUS 500 ML BAG (12:29)
[2021-04-11] MEDS: Duovisc Viscoelastic System EACH 1 EACH (12:29)
[2021-04-11] MEDS: Povidone-Iodine Ophth 30 ML BTL (12:30)
[2021-04-11] MEDS: Lidocaine 2% Jelly 6 ML SYR (12:30)
[2021-04-11 12:50] VITALS: BP 129/82; PULSE 62; RESP 16; TEMP 36.1; O2SAT 97
--- NOTE | 2021-04-11 12:52 | W.PM.DSUDISC ---
Discharge Plan Disposition Patient Disposition: HOME Condition: Good Discharge Details Attending Provider: Kaiser Lilly Primary Care Provider: Rosalba Ferguson Home Meds and New Rx's Prescriptions: No Action ropinirole 1 mg tablet 1 mg PO HS Qty: 30 RF: 0 Saccharomyces boulardii [Daily Probiotic (S. boulardii)] 250 mg capsule 250 mg PO BID RF: 0 ascorbic acid (vitamin C) 1,000 mg tablet 1 gm PO DAILY RF: 0 Fish, Flax andBorage Oil(Prim) 400-400-200 mg capsule 1 cap PO DAILY RF: 0 riboflavin (vitamin B2) 100 mg tablet 400 mg PO DAILY RF: 0 valsartan 40 mg tablet 80 mg PO DAILY RF: 0 rosuvastatin [Crestor] 10 mg tablet 20 mg PO DAILY RF: 0 topiramate 100 mg tablet 100 mg PO BID RF: 0 Aimovig Autoinjector 70 mg/mL auto-injector 70 mg subcut QMONTH Qty: 1 RF: 5 prochlorperazine maleate 5 mg tablet 5 mg PO Q8H PRN PRN (Reason: nausea or headache) Qty: 60 RF: 3 dextroamphetamine-amphetamine [Adderall XR] 20 MG capsule,extended release 24hr 20 mg PO DAILY RF: 0 vitamin B complex [B Complex-Vitamin B12] 1 EACH tablet 1 ea PO DAILY RF: 0 vitamin E 400 UNIT capsule 400 unit PO DAILY RF: 0 cholecalciferol (vitamin D3) 25 mcg (1,000 unit) tablet 2,000 unit PO DAILY RF: 0 multivitamin [Daily Multiple] Tablet 2 tab PO DAILY RF: 0 sumatriptan succinate 100 mg tablet See Rx Instructions PO .COMPLEX Qty: 12 RF: 3 aspirin [Adult Aspirin Regimen] 81 mg tablet,delayed release (DR/EC) 81 mg PO DAILY RF: 0 magnesium oxide 400 mg magnesium capsule 400 mg PO DAILY RF: 0 cholestyramine (with sugar) 4 gram powder 4 pwd PO DAILY RF: 0 budesonide-formoterol [Symbicort] 160-4.5 mcg/actuation HFA aerosol inhaler 2 puff inhalation BID RF: 0 vitamin E (dl, acetate) 400 unit capsule 45 mg PO DAILY RF: 0 venlafaxine 75 mg tablet 150 mg PO DAILY RF: 0 propranolol 20 mg tablet 60 mg PO BID RF: 0 ibuprofen 200 mg Capsule 200 mg PO QID PRNRF: 0 Discharge Instructions Stand Alone Forms: Post-op Topical Cataract, Natasha Amado (DSU) Discharge Orders Discharge Orders: Discharge Order (Routine); Ordered 04/11/21 Ordered By: Kaiser Lilly DS: Diagnosis Discharge Diagnosis (1) Nuclear sclerotic cataract of right eye: Status: Resolved (2) Cortical cataract of right eye: Status: Resolved (3) Posterior subcapsular age-related cataract, right eye: Status: Resolved
--- NOTE | 2021-04-11 12:55 | W.PM.OP ---
Date of service: 04/11/21 Time of Service: 12:55 Operative Note Operative Note DATE OF PROCEDURE: 04/11/21 PRE-OP DIAGNOSIS: Nuclear/cortical/posterior subcapsular cataract, right eye POST-OP DIAGNOSIS: same PROCEDURE: Cataract extraction using phacoemulsification with intraocular lens implantation, right eye, using capsular staining with Vision Blue SURGEON: Kaiser Lilly ANESTHESIA TYPE: Local By Surgeon and MAC Refer to Anesthesia Record PATHOLOGY: none sent COMPLICATIONS: None Patient was transported to: same day Patient's condition: stable Implants: Darian and Darian / [employer] Opt[employer] Tecnis [id number] Indications: Progressive visual loss due to cataract, right eye Procedure Description: CATARACT SURGERY OPERATIVE REPORT PREOPERATIVE DIAGNOSIS: 1. Nuclear/cortical/posterior subcapsular cataract, right eye 2. Poor red reflex secondary to #1 POSTOPERATIVE DIAGNOSIS: Same OPERATION: 1. Cataract extraction using phacoemulsification with posterior chamber intraocular lens implant, right eye. 2. Capsular staining with Vision Blue IOL: IOL Auto [employer] Attendant/Model: Darian & Darian / MAREK Tecnis [id number] IOL Power: + 14.5 diopters IOL Serial Number: [id number] Optic Diameter: 6.0mm Haptic/Overall Diameter: 13.0mm PHACO INFO: [place] [employer] Vision System with OZil and Active Fluidics Cumulative Dispersed Energy (CDE): 6.14 seconds SURGEON: Kaiser Lilly MD, AMAYA ANESTHESIA: Monitored Anesthesia Care (MAC), with local sub-tenon's anesthetic infiltration COMPLICATIONS: None SPECIMENS: None INDICATIONS FOR PROCEDURE: The patient is a 60-year-old gentleman with history of high myopia, left eye greater than right with amblyopia of the left eye. He developed significant bilateral nuclear/cortical/posterior subcapsular cataracts in both eyes, left eye worse than right. He has already undergone cataract surgery in the left eye and is doing well postoperatively, but now has anisometropia symptoms. He now presents for cataract surgery of the right eye. PROCEDURE: The correct surgical eye was identified and marked as the right eye and the pupil was dilated in the preoperative area using mydriatics and cycloplegics. The dilated pupil size was 7.0 mm. Oral sedation was administered in the form of an Imprimis MKO Melt (midazolam 3mg/ketamine 25mg/ondansetron 2mg). The patient was brought to the operating room where cardiopulmonary monitoring was instituted and surgical time-out was performed, confirming the correct operative eye and IOL power. Topical anesthesia was administered and ophthalmic povidone-iodine 5% was instilled into the conjunctival fornices. Lidocaine gel was applied to the cornea and the rafael-ocular area was prepped with Betadine 10% solution and draped in the usual sterile fashion for intraocular surgery, including an aperture drape. A Tegaderm transparent film dressing was cut in half and used to cover the lashes and lid margins. Care was taken to sequester the lashes and lid margins under the Tegaderm dressing. A lid speculum was placed between the lids of the operative eye and the Carl-Keron operating microscope was maneuvered into position. Arjun scissors were then used to make a conjunctival buttonhole approximately 6mm posterior to the limbus in the inferonasal quadrant. Blunt dissection was carried out to expose bare sclera, and a blunt-tipped sub-tenon?s anesthesia cannula was introduced and passed posteriorly along the globe where non-preserved plain lidocaine was injected into posterior sub-Tenon?s space. A sideport knife was used to make a paracentesis port inferotemporally. Intraocular phenylephrine/lidocaine was injected into the anterior chamber. Air was injected into the anterior chamber, followed by Vision Blue, which was painted over the anterior capsule and then irrigated out with BSS. The anterior chamber was filled with viscoelastic. A 2.4mm keratome knife was used to create a half-thickness groove at the limbus and then to construct a three-plane near-clear corneal tunnel extending 2.0mm into clear cornea superiortemporally. A flap was raised on the anterior capsule and capsulorhexis forceps were used to complete a continuous curvilinear capsulorhexis of 5.0 mm. Balanced salt solution was then used to perform cortical cleaving hydrodissection and nuclear hydrodelineation until the lens could be freely rotated within the capsular bag. The lens nucleus was then disassembled and removed within the capsular bag and iris plane using phacoemulsification. Residual cortical material was removed using the I/A handpiece. The posterior capsule was carefully polished to remove as much residual lens epithelial cells as safely possible. The capsular bag was then inflated and the anterior chamber deepened with viscoelastic. The lens implant described above was inserted into the capsular bag using the MAREK [place] Injector. A Kuglen hook was used to dial the IOL into position. Residual viscoelastic was then removed first from posterior to the IOL, then from the anterior chamber using the I/A handpiece. The lens implant was noted to center nicely within the capsular bag. The incisions were stromally hydrated, and the anterior chamber was reformed using BSS. Then 0.5cc of moxifloxacin 1.0mg/ml were injected into the capsular bag and anterior chamber. The incisions were checked with a Weck spear and found to be secure. Several drops of ophthalmic povidone-iodine 5% were then applied to the eye followed by two drops of Imprimis combination prednisolone/moxifloxacin/nepafenac solution. The drapes were removed and a clear plastic protective eye shield was placed over the eye. The patient was then returned to Same Day Surgery in stable condition.
--- NOTE | 2021-04-11 12:56 | W.ANESPOSTOP ---
Postoperative Evaluation Date, Time and Location Date Performed: 04/11/21 Time Performed: 12:56 Patient Location: Day Surgery Unit Vital Signs Most Recent Imported Vital Signs: Most Recent Vital Signs Temp Pulse Resp BP Pulse Ox 36.2 C L 58 L 16 145/83 H 98 04/11/21 11:55 04/11/21 11:55 04/11/21 11:55 04/11/21 11:55 04/11/21 11:55 Pain Score Most Recent Pain Score: Most Recent Pain Score Pain Level 0 04/11/21 11:55 Assessment Mental Status: Awake (Alert & Oriented to Patient Baseline) Airway and Respiratory Function: Patent airway with normal (patient baseline) respiratory exam Cardiovascular Function: Hemodynamically Stable Hydration Status: Adequately Hydrated Nausea & Vomiting: No Nausea or Vomiting Pain: Pt. Denies Any Pain Peripheral Nerve Block: Patient did not receive a nerve block
[2021-04-11 13:10] VITALS: BP 130/85; PULSE 54; RESP 16; TEMP 36.1; O2SAT 98
== END 2021-04-11 13:25 | disposition home or self-care (01) ==
PROVIDERS: PCP Family Medicine; Visit Provider Ophthalmology
PROC: (CPT 66984; principal; 2021-04-11 14:30)
DX: H25.041 Posterior subcapsular polar age-related cataract, right eye (principal); G47.33 Obstructive sleep apnea (adult) (pediatric); R73.03 Prediabetes
CPT/HCPCS: 66984; V2632

== ENCOUNTER 2021-08-04 17:11 | Outpatient (REF) | payer BC, SELFPAY ==
[2021-08-04 18:51] LABS: Hemoglobin A1C 6.3 % (<5.7)
[2021-08-04 19:00] LABS: HCT 44.3 % (40.0-50.0); HGB 14.4 g/dL (13.5-17.5); MCH 28.3 pg (27.0-33.0); MCHC 32.5 % (32.0-36.0); MPV 9.7 fL (8.0-11.0); Platelet Count 207 10^3/uL (130-400); RBC 5.09 10^6/uL (4.36-5.78); RDW 13.3 % (11.8-14.1); RDW-SD 42.5 fL
[2021-08-04 19:03] LABS: ALT 61 U/L (16-63); AST 25 U/L (15-37); Albumin 4.1 g/dL (3.4-5.0); Alkaline Phosphatase 99 U/L (46-116); Anion Gap 13.5 mmol/L (3-11); BUN 21 mg/dL (7-18); Bilirubin, Total 0.8 mg/dL (0.2-1.0); CO2 23.5 mmol/L (21.0-32.0); CREATININE 1.2 mg/dL (0.70-1.30); Calcium 9.3 mg/dL (8.5-10.1); Chloride 106 mmol/L (98-107); Cholesterol 185 mg/dL (<200); Glucose 148 mg/dL (74-106); HDL Cholesterol 38 mg/dL (40-60); Potassium 3.8 mmol/L (3.5-5.1); Sodium 143 mmol/L (136-145); Total Protein 7.1 g/dL (6.4-8.2); Triglyceride 560 mg/dL (<150)
[2021-08-04 19:18] LABS: LDL CHOLESTEROL 84 mg/dL (<100)
== END 2021-08-04 17:12 | disposition home or self-care (01) ==
LOC: NCHCN 17:11
PROVIDERS: PCP Family Medicine; Visit Provider Family Medicine
DX: I10 Essential (primary) hypertension (principal); E78.5 Hyperlipidemia, unspecified; R73.03 Prediabetes; K76.0 Fatty (change of) liver, not elsewhere classified
CPT/HCPCS: 80053; 80061; 83721; 85027; 83036

== ENCOUNTER 2021-09-23 14:31 | Outpatient (REF) | payer BC, SELFPAY ==
[2021-09-23 15:42] LABS: Triglyceride 377 mg/dL (<150)
== END 2021-09-23 14:32 | disposition home or self-care (01) ==
LOC: NCHCN 14:31
PROVIDERS: PCP Family Medicine; Visit Provider Family Medicine
DX: E78.1 Pure hyperglyceridemia (principal)
CPT/HCPCS: 84478

== ENCOUNTER 2022-08-17 17:03 | Outpatient (REF) | payer BC, SELFPAY ==
[2022-08-17 17:58] LABS: HCT 42.6 % (40.0-50.0); HGB 14.1 g/dL (13.5-17.5); MCH 28.3 pg (27.0-33.0); MCHC 33.1 % (32.0-36.0); MCV 85 fL (80-95); MPV 10.2 fL (8.0-11.0); Platelet Count 211 10^3/uL (130-400); RBC 4.99 10^6/uL (4.36-5.78); RDW 13.8 % (11.8-14.1); RDW-SD 42.8 fL; WBC 7.49 10^3/uL (4.4-10.8)
[2022-08-17 18:40] LABS: ALT 49 U/L (16-63); AST 31 U/L (15-37); Albumin 4.2 g/dL (3.4-5.0); Alkaline Phosphatase 100 U/L (46-116); Anion Gap 11.7 mmol/L (3-11); BUN 22 mg/dL (7-18); Bilirubin, Total 0.8 mg/dL (0.2-1.0); CO2 22.3 mmol/L (21.0-32.0); CREATININE 1.1 mg/dL (0.70-1.30); Calcium 9.6 mg/dL (8.5-10.1); Chloride 107 mmol/L (98-107); Glucose 138 mg/dL (74-106); Potassium 3.8 mmol/L (3.5-5.1); Sodium 141 mmol/L (136-145); Total Protein 7.4 g/dL (6.4-8.2)
[2022-08-18 19:14] LABS: Estimated Average Glucose 131 mg/dL; Hemoglobin A1C 6.2 % (<5.7)
[2022-08-19 11:28] LABS: HIV-1/2 Ag & Ab Screen Negative (Negative)
[2022-08-19 12:34] LABS: Uric Acid 7.2 mg/dL (3.5-7.2)
== END 2022-08-17 17:04 | disposition home or self-care (01) ==
LOC: NCHCN 17:03
PROVIDERS: PCP Family Medicine; Visit Provider Family Medicine
DX: R73.03 Prediabetes (principal); Z00.00 Encounter for general adult medical examination without abnormal findings; I10 Essential (primary) hypertension
CPT/HCPCS: 80053; 85027; 87389; 83036; 84550

== ENCOUNTER 2022-11-10 15:02 | Outpatient (REF) | payer BC, SELFPAY ==
[2022-11-10 18:57] LABS: Uric Acid 6.4 mg/dL (3.5-7.2)
== END 2022-11-10 15:03 | disposition home or self-care (01) ==
LOC: NCHCN 15:02
PROVIDERS: PCP Family Medicine; Visit Provider Family Medicine
DX: M10.9 Gout, unspecified (principal)
CPT/HCPCS: 84550

== ENCOUNTER → 2023-07-14 02:00 | Outpatient (CLI) | payer BC, SELFPAY ==
--- NOTE | 2023-07-14 11:28 | DI.RAD_ITS ---
Exam(s) XR LUMBAR SPINE COMPLETE EXAM: XR LUMBAR SPINE COMPLETE CLINICAL HISTORY: ACUTE LOW BACK PAIN,M54.50. TECHNIQUE: 2D digital imaging was performed. Five views. COMPARISON: No exams were available for comparison FINDINGS: BONES: No fracture or destructive lesion. Vertebral body heights are maintained. Mild facet hypertro phy identified L5-S1.. DISKS: Mild narrowing of the L2-3 disc space. Anteriorly projecting osteophytes. The remaining inte rvertebral disc spaces are maintained. ALIGNMENT: Lumbar spinal alignment is within normal limits. SOFT TISSUE: Normal. IMPRESSION: Mild degenerative disc changes at L2-3. Mild facet degenerative changes at L5-S1. DATA REPOSITORY: RADIATION DOSE DELIVERED:
== END ==
PROVIDERS: PCP Family Medicine; Visit Provider Nurse Practitioner Family
DX: M46.96 Unspecified inflammatory spondylopathy, lumbar region (principal)
CPT/HCPCS: 72110

== ENCOUNTER 2023-11-15 18:24 | Outpatient (REF) | payer BC, SELFPAY ==
[2023-11-15 20:05] LABS: HCT 41.8 % (40.0-50.0); MCH 28.2 pg (27.0-33.0); MCHC 33.5 % (32.0-36.0); MCV 84 fL (80-95); MPV 9.4 fL (8.0-11.0); Platelet Count 224 10^3/uL (130-400); RBC 4.97 10^6/uL (4.36-5.78); RDW 12.7 % (11.8-14.1); RDW-SD 38.9 fL; WBC 6.31 10^3/uL (4.4-10.8)
[2023-11-15 20:21] LABS: ALT 142 U/L (16-63); AST 36 U/L (15-37); Albumin 3.8 g/dL (3.4-5.0); Alkaline Phosphatase 194 U/L (46-116); Anion Gap 11.7 mmol/L (3-11); BUN 17 mg/dL (7-18); Bilirubin, Total 0.7 mg/dL (0.2-1.0); CO2 23.3 mmol/L (21.0-32.0); CREATININE 1.1 mg/dL (0.70-1.30); Calcium 9.3 mg/dL (8.5-10.1); Chloride 107 mmol/L (98-107); Estimated GFR 75.43 (mL/min/1.73m2); Glucose 129 mg/dL (74-106); Sodium 142 mmol/L (136-145); Uric Acid 4.6 mg/dL (3.5-7.2)
[2023-11-15 20:24] LABS: Hemoglobin A1C 6.7 % (<5.7)
[2023-11-15 20:36] LABS: COMMENT (LAB VIEW ONLY) 75.21 mg/dL; Microalb ug/mg Crea 67.9 ug/mg Cr
== END 2023-11-15 18:25 | disposition home or self-care (01) ==
LOC: NCHCN 18:24
PROVIDERS: PCP Family Medicine; Visit Provider Family Medicine
DX: I10 Essential (primary) hypertension (principal); K76.0 Fatty (change of) liver, not elsewhere classified; Z13.1 Encounter for screening for diabetes mellitus; M10.071 Idiopathic gout, right ankle and foot
CPT/HCPCS: 80053; 85027; 82043; 82570; 83036; 84550

== ENCOUNTER 2024-08-07 15:55 | Outpatient (REF) | payer BC, SELFPAY ==
[2024-08-07 16:43] LABS: Anion Gap 9.3 mmol/L (3-11); BUN 25 mg/dL (7-18); CO2 27.7 mmol/L (21.0-32.0); CREATININE 1.3 mg/dL (0.70-1.30); Calcium 9.8 mg/dL (8.5-10.1); Chloride 106 mmol/L (98-107); Estimated GFR 61.35 (mL/min/1.73m2); Glucose 132 mg/dL (74-106); Potassium 3.8 mmol/L (3.5-5.1); Sodium 143 mmol/L (136-145)
== END 2024-08-07 15:56 | disposition home or self-care (01) ==
LOC: NCHCN 15:55
PROVIDERS: PCP Family Medicine; Visit Provider Family Medicine
DX: I10 Essential (primary) hypertension (principal)
CPT/HCPCS: 80048

== ENCOUNTER 2024-11-29 12:16 | Outpatient (REF) | payer BC, SELFPAY ==
[2024-11-29 15:32] LABS: HCT 44.8 % (40.0-50.0); HGB 15.5 g/dL (13.5-17.5); MCH 29.4 pg (27.0-33.0); MCHC 34.6 % (32.0-36.0); MCV 85 fL (80-95); MPV 9.5 fL (8.0-11.0); Platelet Count 216 10^3/uL (130-400); RBC 5.28 10^6/uL (4.36-5.78); RDW 12.9 % (11.8-14.1); RDW-SD 39.8 fL; WBC 7.55 10^3/uL (4.4-10.8)
[2024-11-29 16:19] LABS: COMMENT (LAB VIEW ONLY) 115.96 mg/dL; Microalb ug/mg Crea 8.5 ug/mg Cr
[2024-11-29 16:30] LABS: ALT 35 U/L (16-63); AST 21 U/L (15-37); Albumin 4.4 g/dL (3.4-5.0); Alkaline Phosphatase 84 U/L (46-116); Anion Gap 9.5 mmol/L (3-11); BUN 24 mg/dL (7-18); Bilirubin, Total 1.2 mg/dL (0.2-1.0); CO2 27.5 mmol/L (21.0-32.0); CREATININE 1.3 mg/dL (0.70-1.30); Calcium 9.9 mg/dL (8.5-10.1); Calculated LDL 26 mg/dL (<100); Chloride 106 mmol/L (98-107); Cholesterol 118 mg/dL (<200); Estimated GFR 61.35 (mL/min/1.73m2); Glucose 116 mg/dL (74-106); HDL Cholesterol 49 mg/dL (>or=40); Potassium 3.4 mmol/L (3.5-5.1); Sodium 143 mmol/L (136-145); Total Protein 7.4 g/dL (6.4-8.2); Triglyceride 218 mg/dL (<150)
[2024-11-29 17:50] LABS: Hemoglobin A1C 5.8 % (<5.7)
== END 2024-11-29 12:17 | disposition home or self-care (01) ==
LOC: NCHCN 12:16
PROVIDERS: PCP Family Medicine; Visit Provider Family Medicine
DX: E11.9 Type 2 diabetes mellitus without complications (principal); K76.0 Fatty (change of) liver, not elsewhere classified; E78.5 Hyperlipidemia, unspecified
CPT/HCPCS: 80053; 80061; 85027; 82043; 82570; 83036

== ENCOUNTER 2025-03-07 17:49 | Outpatient (REF) | payer BC, SELFPAY ==
[2025-03-08 19:00] LABS: PSA, Diagnostic 0.4 ng/mL (<=4.5)
== END 2025-03-07 17:50 | disposition home or self-care (01) ==
LOC: NCHCN 17:49
PROVIDERS: PCP Family Medicine; Visit Provider Family Medicine
DX: N39.41 Urge incontinence (principal)
CPT/HCPCS: 84153

== ENCOUNTER 2025-06-07 10:52 | Day surgery (SDC) | payer BC, SELFPAY ==
[2025-06-07] VITALS (22 sets, daily range): BP systolic 78–137; BP diastolic 55–91; PULSE 61–73; RESP 10–23; TEMP 36–36.7; O2SAT 93–97; BMI 36.3
[2025-06-07] MEDS: Lactated Ringers 1,000 ML 80 ML IV (11:36)
--- NOTE | 2025-06-07 11:48 | W.PM.HP.N ---
Date of service: 06/07/25 Time of Service: 11:48 Assessment and Plan Assessment and plan (1) Urinary stone: Status: Acute Assessment and plan: It is not clear to me how many of his irritative voiding symptoms are related to a bladder stone, but he is agreeable to a cystoscopy and extraction/holmium laser lithotripsy of any stone that is visible. Once the stone has been addressed and he has recovered from this procedure, any residual irritative symptoms could be treated medically. History of Present Illness History of Present Illness Chief Complaint: Bladder stone Narrative: Pablo is a 64-year-old male referred to urology due to frequent urination and urgency. He also has urge incontinence. There is note that he had a renal ultrasound that showed elevated PVR in which his PCP started him back on tamsulosin again. There is also concern that he has a bladder stone. Patient reports his frequency and urgency have been there for years however it is getting worse in the last few years. He notes that he is seeing some improvement with the tamsulosin. He feels that he can empty out completely. He denies need to strain to get his stream going. No dysuria. No gross hematuria. No history of bladder or kidney infections. He does have a history of kidney stones. We are uncertain about his stone's chemical composition. Review of Systems Narrative: No fevers or chills Hx cataract. No dysphasia No diabetes or thyroid dysfunction Sleep apnea. No hemoptysis No chest pain or palpitations No nausea, vomiting, hepatitis, ulcers, jaundice Hx migraines. No seizures, strokes or peripheral neuropathy No bleeding disorders or anemia No gout PFSH All Active Problems Urinary stone (Acute) Type 2 diabetes mellitus (Acute) Rhinitis (Acute) Dysfunction of both eustachian tubes (Acute) Ear fullness (Acute) Sebaceous cyst (Acute) High myopia, left eye (Chronic) Fatty infiltration of liver (Acute) Restless leg (Acute) Migraines (Chronic) Dyspnea on exertion (Acute) Cyst of neck (Acute) Encounter for removal of sutures (Acute) Laceration (Acute) Snoring (Acute) Carpal tunnel syndrome on both sides (Acute) Erectile dysfunction (Chronic) ADHD (Chronic) Depression with anxiety (Chronic) BMI 37.0-37.9, adult (Chronic) Pre-diabetes (Chronic) Gout (Chronic) Obstructive sleep apnea on CPAP (Chronic) Headache, chronic migraine without aura (Chronic) Hyperlipidemia (Chronic) Hypertension (Chronic) Hemorrhoids (Chronic) Medical History History of malignant neoplasm of colon BPH (benign prostatic hyperplasia) GERD without esophagitis Hearing loss Recurrent major depression Chronic cough Hypertriglyceridemia Otalgia, unspecified ear Obesity History of nephrolithiasis Kidney stones History of hypertension Surgical History History of carpal tunnel release left 06/2019 right 08/2018 Hx of cataract surgery right 04/2021 Hx of colonoscopy 2014 H/O umbilical hernia repair 1997 Leg fracture tib/fib fx ORIF , 2007 S/P partial colectomy 2016 Repair of umbilical hernia Family History Father Heart disease Stroke Colon cancer Hypertension Glaucoma Anxiety Mother Heart disease Hypertension Kidney disease Brother Glaucoma Paternal Grandfather CAD (coronary artery disease) Maternal Grandmother Diabetes Social History Smoking/Tobacco Use Status: Never Smoking risk assessment performed?: Yes Alcohol Intake: current Alcohol Intake frequency: holidays/special occasions only Drug use: Never Substance use type: does not use Household members: spouse and children Housing: house current occupation: TEACHES AT [employer], 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 Meds Allergies and Home Medications Allergies Allergy/AdvReac Type Severity Reaction Status Date / Time chlorhexidine Allergy Intermediate rash Verified 06/07/25 11:05 Home Medications Medication Instructions Recorded Confirmed Type dextroamphetamine-amphetamine ER 20 mg PO DAILY 03/21/18 06/07/25 History 20 mg 24hr capsule,extend release (Adderall XR) ropinirole 1 mg tablet 1 mg PO HS #30 tabs 05/02/18 06/07/25 Rx cholecalciferol (vitamin D3) 25 2,000 unit PO DAILY 07/20/19 06/07/25 History mcg (1,000 unit) tablet rosuvastatin 10 mg tablet (Crestor) 20 mg PO DAILY 07/20/19 06/07/25 History magnesium oxide 400 mg PO DAILY 03/07/21 06/07/25 History allopurinol 100 mg tablet 100 mg PO DAILY 12/16/23 06/07/25 History metformin 500 mg tablet,extended 500 mg PO DAILY 12/16/23 06/07/25 History release 24 hr omega-3 fatty acids-fish oil 340 2 cap PO DAILY 12/16/23 06/06/25 History mg-1,000 mg capsule omeprazole 20 mg capsule,delayed 40 mg PO DAILY 12/16/23 06/07/25 History release valsartan 160 mg tablet 160 mg PO DAILY 12/16/23 06/07/25 History sumatriptan succinate 100 mg tablet See Rx Instructions .Route 04/11/24 06/07/25 Rx .COMPLEX #14 tabs prochlorperazine maleate 5 mg See Rx Instructions .Route 06/19/24 06/07/25 Rx tablet .COMPLEX #60 tabs erenumab-aooe 140 mg/mL See Rx Instructions .Route 11/20/24 06/07/25 Rx subcutaneous auto-injector .COMPLEX #1 mL (Aimovig Autoinjector) chlorthalidone 25 mg tablet 25 mg PO DAILY 12/13/24 06/07/25 History cholestyramine 4 gram oral powder 4 g PO DAILY 12/13/24 06/07/25 History semaglutide 2 mg/dose (8 mg/3 mL) 2 mg subcut QWEEK 12/13/24 06/06/25 History subcutaneous pen injector (Ozempic) topiramate 100 mg tablet See Rx Instructions .Route 12/13/24 06/07/25 Rx .COMPLEX #90 tabs venlafaxine 150 mg 150 mg PO DAILY 04/11/25 06/07/25 History capsule,extended release 24 hr tamsulosin 0.4 mg capsule 0.4 mg PO DAILY 05/17/25 06/07/25 History Exam Const General: cooperative Neck Neck: supple Resp Effort & Inspection: normal respiratory effort Auscultation: clear to auscultation bilaterally Cardio Rate: regular rate Rhythm: regular rhythm GI Palpation: soft and no masses Neuro General: patient alert, patient awake and patient oriented x3 Results Last Vital Signs Temp 36.0 C L 06/07/25 11:23 Pulse 70 06/07/25 11:23 Resp 16 06/07/25 11:23 BP 137/91 H 06/07/25 11:23 Pulse Ox 96 06/07/25 11:23 Time Spent Time spent with Patient: <40 minutes Time was spent: other
--- NOTE | 2025-06-07 11:52 | W.ANESPRE ---
General Info Date of Service Date Performed: 06/07/25 Height: 5 ft 10 in Weight: 114.7 kg Body Mass Index (BMI): 36.3 Surgical Procedure: Operation Date: 06/07/25 11:40 Proposed Procedure Side Surgeon p Cystoscopy with Bladder Stone Removal Colton Gonzalez MD Meds Allergies and Home Medications Allergies Allergy/AdvReac Type Severity Reaction Status Date / Time chlorhexidine Allergy Intermediate rash Verified 06/07/25 11:05 Home Medication Medication Instructions Recorded dextroamphetamine-amphetamine ER 20 mg PO DAILY 03/21/18 20 mg 24hr capsule,extend release (Adderall XR) ropinirole 1 mg tablet 1 mg PO HS #30 tabs 05/02/18 cholecalciferol (vitamin D3) 25 2,000 unit PO DAILY 07/20/19 mcg (1,000 unit) tablet rosuvastatin 10 mg tablet (Crestor) 20 mg PO DAILY 07/20/19 magnesium oxide 400 mg PO DAILY 03/07/21 allopurinol 100 mg tablet 100 mg PO DAILY 12/16/23 metformin 500 mg tablet,extended 500 mg PO DAILY 12/16/23 release 24 hr omega-3 fatty acids-fish oil 340 2 cap PO DAILY 12/16/23 mg-1,000 mg capsule omeprazole 20 mg capsule,delayed 40 mg PO DAILY 12/16/23 release valsartan 160 mg tablet 160 mg PO DAILY 12/16/23 sumatriptan succinate 100 mg tablet See Rx Instructions .Route 04/11/24 .COMPLEX #14 tabs prochlorperazine maleate 5 mg See Rx Instructions .Route 06/19/24 tablet .COMPLEX #60 tabs erenumab-aooe 140 mg/mL See Rx Instructions .Route 11/20/24 subcutaneous auto-injector .COMPLEX #1 mL (Aimovig Autoinjector) chlorthalidone 25 mg tablet 25 mg PO DAILY 12/13/24 cholestyramine 4 gram oral powder 4 g PO DAILY 12/13/24 semaglutide 2 mg/dose (8 mg/3 mL) 2 mg subcut QWEEK 12/13/24 subcutaneous pen injector (Ozempic) topiramate 100 mg tablet See Rx Instructions .Route 12/13/24 .COMPLEX #90 tabs venlafaxine 150 mg 150 mg PO DAILY 04/11/25 capsule,extended release 24 hr tamsulosin 0.4 mg capsule 0.4 mg PO DAILY 05/17/25 Current Visit Medications: Current Medications Generic Name Dose Route Start Last Admin Trade Name Freq PRN Reason Stop Dose Admin Ringer's Solution 1,000 mls @ 80 mls/hr 06/07/25 06:00 06/07/25 11:36 IV 06/07/25 23:59 80 mls/hr INFUSION KECIA Administration Cefazolin Sodium/Dextrose 2 gm in 50 mls @ 100 mls/hr 06/07/25 06:00 Ancef Duplex IVPB 06/07/25 23:59 PREOP KECIA IV Miscellaneous Supplies 1 each 06/07/25 06:00 Iv Access IV 06/07/25 23:59 DIRECTED KECIA Sodium Chloride 0 ml 06/07/25 06:00 Normal Saline Flush 10 Ml Syr IV 06/07/25 23:59 PRN PRN Sodium Chloride 0 ml 06/07/25 06:00 Normal Saline 10 Ml Vial IJ 06/07/25 23:59 DIRECTED PRN Sterile Water 0 ml 06/07/25 06:00 Water,Injection,Sterile 10 Ml Vial IJ 06/07/25 23:59 DIRECTED PRN PFSH Active Problems Active Problems: Problem Status Onset Code Urinary stone Acute N20.9 Type 2 diabetes mellitus Acute E11.9 Rhinitis Acute J31.0 Dysfunction of both eustachian tubes Acute H69.93 Ear fullness Acute H93.8X9 Sebaceous cyst Acute L72.3 Posterior subcapsular age-related cataract, right eye Resolved H25.041 Cortical cataract of right eye Resolved H26.9 Nuclear sclerotic cataract of right eye Resolved H25.11 Posterior subcapsular age-related cataract of left eye Resolved H25.042 Nuclear sclerotic cataract of left eye Resolved H25.12 High myopia, left eye Chronic H52.12 Cortical cataract of left eye Resolved H26.9 Fatty infiltration of liver Acute K76.0 Restless leg Acute G25.81 Migraines Chronic G43.909 Dyspnea on exertion Acute R06.00 Cyst of neck Acute Encounter for removal of sutures Acute Z48.02 Laceration Acute Snoring Acute R06.83 Carpal tunnel syndrome on both sides Acute G56.03 Erectile dysfunction Chronic N52.9 Colon cancer Resolved C18.9 ADHD Chronic F90.9 Depression with anxiety Chronic F41.8 BMI 37.0-37.9, adult Chronic Z68.37 Pre-diabetes Chronic R73.03 Gout Chronic M10.9 Obstructive sleep apnea on CPAP Chronic G47.33, Z99.89 Headache, chronic migraine without aura Chronic G43.709 Hyperlipidemia Chronic E78.5 Hypertension Chronic I10 Hemorrhoids Chronic Medical History Medical History History of malignant neoplasm of colon BPH (benign prostatic hyperplasia) GERD without esophagitis Hearing loss Recurrent major depression Chronic cough Hypertriglyceridemia Otalgia, unspecified ear Obesity History of nephrolithiasis Kidney stones History of hypertension Surgical History Surgical History History of carpal tunnel release left 06/2019 right 08/2018 Hx of cataract surgery right 04/2021 Hx of colonoscopy 2014 H/O umbilical hernia repair 1997 Leg fracture tib/fib fx ORIF , 2007 S/P partial colectomy 2016 Repair of umbilical hernia Tobacco Smoking/Tobacco Use Status: Never Alcohol Alcohol Intake: current Alcohol intake frequency: holidays/special occasions only Substance Use Substance use: Never Substance use type: does not use Vital Signs and Lab Results Vital Signs Most Recent Vital Signs in EMR: Most Recent Vital Signs Temp Pulse Resp BP Pulse Ox 36.0 C L 70 16 137/91 H 96 06/07/25 11:23 06/07/25 11:23 06/07/25 11:23 06/07/25 11:23 06/07/25 11:23 Point of Care Results Point of Care Results: Finger Stick Blood Glucose 116 06/07/25 11:09 Imaging and Studies Imaging and Studies Study information below may be from another EMR and interpreted by another provider. Please see original notes in EMR for more complete details. Stress Test Summary: Date of Exam: 03/02/18 Impressions: - Normal perfusion by [id number] Sestamibi Imaging. Echocardiogram Summary: Date of study: 03/09/2018 Transthoracic Echocardiography M-mode, complete 2D, complete spectral Doppler, and color Doppler *STUDY CONCLUSIONS* Summary: 1. Left ventricle: The cavity size was mildly dilated. Wall thickness was increased in a pattern of mild LVH. Systolic function was normal. The estimated ejection fraction was 55-60%. Wall motion was normal; there were no regional wall motion abnormalities. 2. Aortic valve: Trileaflet; normal thickness leaflets. There was mild regurgitation. 3. Aortic root: The aortic root was mildly dilated. 4.0 cm. 4. Mitral valve: There was mild regurgitation. 5. Left atrium: The atrium was mildly dilated. 6. Right ventricle: The cavity size was mildly dilated. Wall thickness was normal. Systolic function was normal. 7. Right atrium: The atrium was moderately dilated. 8. Pulmonary arteries: Pulmonary systolic pressure was within the normal range, in the range of 30mm Hg to 35mm Hg. Pulmonary Function Summary: Date of service: 11/05/20 Pulmonary Function Test Result Spirometry: Borderline mild obstructive airways disease, may represent normal variant, no bronchodilator response Lung Volumes: No evidence of restriction Diffusion Capacity: Normal Airway Pressure: Normal Impression Overall likely, normal pulmonary function study slightly low FEV1/FVC might be related to extremely poor patient effort for the prebronchodilator spirometry. Clinical Correlation therefore is recommended. Anesthesia Assessment and Plan Anesthesia History Personal History: No History of Anesthesia Complications Family History: No Family History of Anesthesia Complications Exercise Tolerance Exercise Tolerance: Metabolic Equivalents>4 Pertinent Negatives Pertinent Negatives: No Symptoms of GERD Cardiac & Pulmonary Exam Cardiac Exam: Normal S1/S2 Heart Sounds Pulmonary Exam: Clear Bilateral Breath Sounds Implantable Cardiac Device Does patient have a Pacemaker or an ICD?: No Airway Exam Known Difficult Airway: No Mallampati Class: 2 Mouth Opening: Normal (> 3cm) Thyromental Distance: Greater than 3 cm Neck Range of Motion: Full ROM Neck Circumference: Normal Teeth Condition: Normal Dentition ASA Classification ASA Score: ASA 2 Emergency Case?: No NPO Status NPO Status: NPO Clears >2 hours, Solids >8 hours Anesthesia Plan Resuscitation Status: Full Code Anesthesia Technique: General Anesthesia Airway Planned: LMA Monitors Used: Standard Monitors and SedLine
[2025-06-07] MEDS: ceFAZolin 2 GM/50 ML BAG IVPB (12:15)
[2025-06-07] MEDS: Lidocaine 2% Jelly 11 ML SYR (12:40)
--- NOTE | 2025-06-07 12:53 | ROE_ITS ---
Operative Note Operative Note PRE-OP DIAGNOSIS: Bladder stone POST-OP DIAGNOSIS: other (right ureteral stone) PROCEDURE: cystoscopy, transurethral incision of ureteral orifice, ureteral stone extraction SURGEON: Colton Gonzalez ANESTHESIA TYPE: Local By Surgeon and General LMA/ETT Refer to Anesthesia Record ESTIMATED BLOOD LOSS: 5 PATHOLOGY: other (stone for chemical analysis) COMPLICATIONS: None Patient was transported to: PACU Patient's condition: stable Implants: none Indications: This is a 64-year-old gentleman who has irritative voiding symptoms such as urinary frequency urgency. He was evaluated with an ultrasound which raised the question of a bladder stone. He presents for cystoscopy and possible holmium laser lithotripsy of the bladder stone Findings: No stones within the bladder, but the right ureteral orifice was quite enlarged due to an embedded right distal ureteral stone Procedure Description: The patient was given IV antibiotics and brought to the operating room on 06/07/2025. After successful induction of general anesthesia, he was placed in the dorsal lithotomy position. His genitalia was prepped and draped. 2% Xylocaine jelly was instilled into the urethra to act as a local anesthetic. A 22 [place] rigid cystoscope was passed through the urethra into the bladder. The urethra and bladder were inspected with a 30 degree lens. The pendulous, bulbar and membranous urethra's appeared normal with no strictures. Prostatic urethra showed lateral lobe enlargement and a very small median lobe jutting back into the bladder. The bladder neck was entered and the bladder mucosa was inspected. The left ureteral orifice appeared normal. The right ureteral orifice was quite edematous with what appeared to be stone embedded just at the lumen of the ureter. No stone was seen within the bladder. I then removed the cystoscope and passed a 24 [place] resectoscope sheath through the urethra into the bladder. Transurethral incision of the right ureteral orifice was then performed using bipolar cautery. The stone was unroofed and extracted in its entirety. The stone was then sent to the laboratory for chemical analysis. Repeat inspection of the right ureteral orifice showed no active bleeding and clear urine draining. We elected not to place a ureteral stent. The bladder was emptied and the resectoscope was withdrawn. The patient tolerated the procedure well with no complications. He was taken to the recovery room in stable condition. Date of Procedure: 06/07/25
--- NOTE | 2025-06-07 12:55 | W.PM.DSUDISC ---
Date of service: 06/07/25 Discharge Plan Disposition Patient Disposition: Home Condition: Stable Discharge Details Reason For Visit: cystoscopy with stone extraction Attending Provider: Colton Gonzalez Primary Care Provider: Rosalba Ferguson Home Meds and New Rx's Prescriptions: No Action ropinirole 1 mg tablet 1 mg PO HS Qty: 30 0RF rosuvastatin [Crestor] 10 mg tablet 20 mg PO DAILY chlorthalidone 25 mg tablet 25 mg PO DAILY cholestyramine 4 gram powder 4 g PO DAILY Rx Instructions: administer w/meal; avoid other meds within 1hr before or 4-6hr after dose Ozempic 2 mg/dose (8 mg/3 mL) pen injector 2 mg subcut QWEEK topiramate 100 mg tablet See Rx Instructions .ROUTE .COMPLEX Qty: 90 2RF Dose Instruction: Take 1 tablet by mouth at bedtime Rx Instructions: Take 1 tablet by mouth at bedtime tamsulosin 0.4 mg capsule 0.4 mg PO DAILY Patient Comments: TAKE ONE CAPSULE BY MOUTH EVERY DAY dextroamphetamine-amphetamine [Adderall XR] 20 MG capsule,extended release 24hr 20 mg PO DAILY cholecalciferol (vitamin D3) 25 mcg (1,000 unit) tablet 2,000 unit PO DAILY magnesium oxide 400 mg magnesium capsule 400 mg PO DAILY omeprazole 20 mg capsule,delayed release(DR/EC) 40 mg PO DAILY allopurinol 100 mg tablet 100 mg PO DAILY omega-3 fatty acids-fish oil 340-1,000 mg capsule 2 cap PO DAILY metformin 500 mg tablet extended release 24 hr 500 mg PO DAILY valsartan 160 mg tablet 160 mg PO DAILY sumatriptan succinate 100 mg tablet See Rx Instructions .ROUTE .COMPLEX Qty: 14 11RF Dose Instruction: Take 1 tablet by mouth at onset of headache; if no relief may repeat 1 tab in 1hr; max = 2 tabs/24 hrs Rx Instructions: Take 1 tablet by mouth at onset of headache; if no relief may repeat 1 tab in 1hr; max = 2 tabs/24 hrs prochlorperazine maleate 5 mg tablet See Rx Instructions .ROUTE .COMPLEX Qty: 60 1RF Dose Instruction: Take 1 to 2 tablets by mouth every 8 hours as needed for nausea or for headache Rx Instructions: Take 1 to 2 tablets by mouth every 8 hours as needed for nausea or for headache Aimovig Autoinjector 140 mg/mL auto-injector See Rx Instructions .ROUTE .COMPLEX Qty: 1 10RF Dose Instruction: Inject 140mg subcutaneously every month Rx Instructions: Inject 140mg subcutaneously every month venlafaxine 150 mg capsule,extended release 24hr 150 mg PO DAILY Discharge Instructions Additional Instructions: There is no need to strain your urine - your stone has been removed You may see blood in the urine for up to about 1 week but the bleeding should resolve on its own Followup visit in 6 to 8 weeks with renal ultrasound prior to visit Stand Alone Forms: Portal Information Activity:: Activity as Tolerated Shower/Bathe:: 24 hours Diet:: As Tolerated Discharge Orders Discharge Orders: Discharge Order (Routine); Ordered 06/07/25 Ordered By: Colton Gonzalez DS: Diagnosis Discharge Diagnosis (1) Urinary stone: Status: Acute
[2025-06-07] MEDS: Phenazopyridine 200 MG TAB PO (13:57)
--- NOTE | 2025-06-07 14:49 | W.ANESPOSTOP ---
Postoperative Evaluation Date, Time and Location Date Performed: 06/07/25 Time Performed: 14:49 Patient Location: Day Surgery Unit Vital Signs Most Recent Imported Vital Signs: Most Recent Vital Signs Temp Pulse Resp BP Pulse Ox 36.3 C L 61 16 108/79 97 06/07/25 13:49 06/07/25 13:49 06/07/25 13:49 06/07/25 13:49 06/07/25 13:49 Pain Score Most Recent Pain Score: Most Recent Pain Score Pain Level 0 06/07/25 13:49 Assessment Mental Status: Awake (Alert & Oriented to Patient Baseline) Airway and Respiratory Function: Patent airway with normal (patient baseline) respiratory exam Cardiovascular Function: Hemodynamically Stable Hydration Status: Adequately Hydrated Nausea & Vomiting: No Nausea or Vomiting Pain: Pt. Denies Any Pain Peripheral Nerve Block: Patient did not receive a nerve block
== END 2025-06-07 14:57 | disposition home or self-care (01) ==
PROVIDERS: PCP Family Medicine; Visit Provider Urology
PROC: 0TBB8ZX Excision of Bladder, Via Natural or Artificial Opening Endoscopic, Diagnostic (ICD-10-PCS; CPT 52204; principal; 2025-06-07 11:30)
DX: N20.1 Calculus of ureter (principal); E11.9 Type 2 diabetes mellitus without complications; K21.9 Gastro-esophageal reflux disease without esophagitis; E78.1 Pure hyperglyceridemia; E66.9 Obesity, unspecified
CPT/HCPCS: 52352; 82365; J0131; J0690; J1100; J2003; J2371; J2405; J2704; J3010